=== PATIENT | female | born 1950 | race Caucasian/White ===

== ENCOUNTER → 2016-09-12 | Outpatient (CLI) | payer BC ==
[~2016-09-12] MED LIST: ACET-1311 PO; BUSP15TA70 PO; CALC625T PO; CALCTAB5 PO; CHOL100010 PO; CLON0.5T3 PO; DOCU-94 PO; OMEP20TA PO; PHEN1TAB85 PO; PHEN50CH PO; PHN/100 PO; POLY335019 PO; POLY99.02 OP; VENL150C PO; VENL75CA PO; WARF4TAB8 PO; WARF5TAB90 PO
[2016-09-12 09:43] LABS: BASO % 0.1 %; BASO ABS # 0.01 K/uL (0-0.2); COMPLETE YES; EOS % 2.6 %; HEMATOCRIT 46.3 % (37-47); IG% 0.1 %; LYMPH % 41.9 %; LYMPH ABS # 2.85 K/uL (1.2-3.4); MEAN CELL VOLUME 92.2 fL (80-100); MEAN CORPUSCULAR HEMOGLOBIN 31.1 pg (25-34); MEAN CORPUSCULAR HGB CONC 33.7 g/dl (32-36); MEAN PLATELET VOLUME 10.4 fL (7.4-10.4); MONO % 11.5 %; NEUT % 43.8 %; PLATELET COUNT 202 K/uL (130-400); RED BLOOD COUNT 5.02 M/uL (4.2-5.4)
[2016-09-12 10:07] LABS: ALT/SGPT 29 U/L (12-78); AST/SGOT 17 U/L (15-37); BLOOD UREA NITROGEN 14 mg/dl (7-18); BUN/CREATININE RATIO 18.7 (10-20); CALCIUM 8.6 mg/dl (8.5-10.1); CARBON DIOXIDE 29 mmol/L (21-32); CHLORIDE 105 mmol/L (98-107); CREATININE 0.73 mg/dl (0.60-1.20); GLUCOSE 81 mg/dl (70-99); PHENOBARBITAL 19.3 mcg/mL (15.0-40.0); POTASSIUM 3.9 mmol/L (3.5-5.1); SODIUM 142 mmol/L (136-145)
[2016-09-12 10:17] LABS: ALKALINE PHOSPHATASE 98 U/L (45-117)
[2016-09-12 17:39] LABS: URINE APPEARANCE CLEAR (CLEAR); URINE BILIRUBIN NEG (NEG); URINE COLOR YELLOW; URINE EPITHELIAL CELL AUTO >30 /lpf (0-5); URINE NITRITE NEG (NEG); URINE SPECIFIC GRAVITY 1.006 (1.000-1.030); UROBILINOGEN NEG (NEG)
[2016-09-12 17:43] LABS: MANUAL MICROSCOPIC REQUIRED? NO; REVIEW REQ? NO
== END | disposition home or self-care (01) ==
LOC: C.LAB1850 08:49
PROVIDERS: ATTEND Student in an Organized Health Care Education/Training Program
DX: Z79.899 Other long term (current) drug therapy (principal); R39.12 Poor urinary stream; F33.1 Major depressive disorder, recurrent, moderate

== ENCOUNTER → 2016-10-28 | Outpatient (CLI) | payer BC ==
--- NOTE | 2016-10-28 15:46 | DIAGNOSTIC IMAGING REPORT ---
KUB CLINICAL HISTORY: Constipation. Generalized abdominal pain. FINDINGS: 2 AP supine abdominal radiographs are obtained. No prior studies are available for comparison at the time of dictation. There is a nonobstructed abdominal bowel gas pattern noting severe constipation. No evidence of intraperitoneal free air is seen. There are no abnormal abdominal calcifications. The skeletal structures are osteopenic. Mild lumbosacral spondylosis and scoliosis are observed. The bony pelvis appears intact. IMPRESSION: Severe constipation. Electronically signed by: Carmine Causey M.D. 10/28/2016 3:44 PM Dictated Date/Time: 10/28/2016 3:43 PM
== END | disposition home or self-care (01) ==
LOC: C.RADBC 15:19
PROVIDERS: ATTEND Internal Medicine Geriatric Medicine
DX: K59.00 Constipation, unspecified (principal); R10.9 Unspecified abdominal pain

== ENCOUNTER → 2016-11-05 | Outpatient (CLI) | payer BC ==
--- NOTE | 2016-11-05 14:50 | DIAGNOSTIC IMAGING REPORT ---
KUB CLINICAL HISTORY: CONSTIPATION COMPARISON STUDY: 10/28/2016 FINDINGS: There is persistent fecal retention similar to the prior study. There are no transition zones indicate bowel obstruction. No abnormal abdominal calcifications are evident. IMPRESSION: Persistent fecal retention similar to the prior study Electronically signed by: Elvin Guardado M.D. 11/05/2016 2:49 PM Dictated Date/Time: 11/05/2016 2:48 PM
== END | disposition home or self-care (01) ==
LOC: C.RADBC 14:31
PROVIDERS: ATTEND Physician Assistant Medical
DX: K59.00 Constipation, unspecified (principal)

== ENCOUNTER → 2016-11-11 | Outpatient (CLI) | payer BC ==
[~2016-11-11] MED LIST changes: +ACET-1256 PO; +CALC-393 PO; +CHOL1TAB76 PO; +GLYCDRO6 OP; +MULT-663 PO; +ULT50X PO
--- NOTE | 2016-11-11 09:02 | DIAGNOSTIC IMAGING REPORT ---
GI W/AIR SMALL BOWEL ROUTINE CLINICAL HISTORY: K59.00 [id number] Abdominal [id number] COMPARISON STUDY: KUB 11/05/2016. FLUOROSCOPY TIME: 2.2 minutes. 39 images submitted. FINDINGS: The patient swallowed barium without difficulty. The esophagus is normal in course and caliber. Moderate hiatus hernia. No gastric ulcerations. The duodenal bulb and duodenal C sweep are within normal limits. Moderate gastroesophageal reflux. Additional fluoroscopic spot and overhead images of the small bowel were obtained. Contrast reached the colon x 20 m. The small bowel is normal in course and caliber. No evidence for bowel obstruction. The terminal ileum is normally distensible. IMPRESSION: 1. Moderate hiatus hernia with moderate gastroesophageal reflux. 2. Fast transit of contrast from small bowel and into the colon at 20 minutes. Otherwise, normal small bowel follow-through. Electronically signed by: Olvin Curtis M.D. 11/11/2016 9:01 AM Dictated Date/Time: 11/11/2016 8:57 AM
[2016-11-11 10:13] LABS: CALCIUM 8.7 mg/dl (8.5-10.1); CREATININE 0.76 mg/dl (0.60-1.20)
== END | disposition home or self-care (01) ==
LOC: C.RAD 07:37
PROVIDERS: ATTEND Physician Assistant Medical
DX: K44.9 Diaphragmatic hernia without obstruction or gangrene (principal); K21.9 Gastro-esophageal reflux disease without esophagitis; K59.00 Constipation, unspecified; M81.0 Age-related osteoporosis without current pathological fracture

== ENCOUNTER → 2016-12-25 | Outpatient (CLI) | payer BC ==
[2017-01-01 13:00] LABS: O&P SOURCE OTHER-STOOL
== END | disposition home or self-care (01) ==
LOC: C.LABSPEC 17:21
PROVIDERS: ATTEND Family Medicine
DX: R19.4 Change in bowel habit (principal)

== ENCOUNTER → 2017-01-01 | Outpatient (CLI) | payer BC ==
[~2017-01-01] MED LIST changes: +OPTIRAY 320 IV PRN
--- NOTE | 2017-01-01 08:35 | DIAGNOSTIC IMAGING REPORT ---
CT SCAN OF THE ABDOMEN WITH IV CONTRAST CLINICAL HISTORY: Generalized abdominal pain. Diarrhea. COMPARISON STUDY: Abdominal radiograph dated 11/05/2016. Radiograph of lumbar spine dated 08/30/2012. TECHNIQUE: Following the IV administration of 118 cc of Optiray 320, CT scan of the abdomen is performed from the lung bases to the pelvic inlet. Images are reviewed in the axial, sagittal, and coronal planes. IV contrast was administered without complication. Automated dose control exposure was utilized. Examination is degraded by large body habitus, and by streak artifact from the body wall abutting the CT gantry. CT DOSE: 500.09 mGy.cm FINDINGS: Lung bases: The heart is normal in size and without pericardial effusion. Linear atelectasis versus scarring is present at the lung bases. Liver: The contrast-enhanced liver is normal in size, contour, and attenuation. There is no intrahepatic biliary ductal dilatation. The hepatic veins and portal veins are patent. Gallbladder: Unremarkable. Spleen: Normal in size and attenuation. Pancreas: Unremarkable. Adrenal glands: There is mild nodularity of the left adrenal gland. The right adrenal gland is normal in appearance. Kidneys: The contrast enhanced kidneys there is a cortical atrophy and are without hydronephrosis. The kidneys enhance symmetrically. Left renal cysts measure up to 6.4 cm. Additional subcentimeter cortical hypodensities also likely represent cysts but are too small for definitive characterization. Abdominal vasculature: The abdominal aorta is normal in course and caliber noting minimal atherosclerotic calcification. Stomach and bowel: There is a moderate to large hiatal hernia. The duodenum is normal in configuration. Visualized portions of the small bowel and colon are normal in course and caliber. There is moderate colonic fecal retention. Peritoneum: There is no intraperitoneal free air or abdominal ascites. There is a small fat-containing umbilical hernia. Lymphadenopathy: None. Skeletal structures: The skeletal structures are osteopenic. No lytic or blastic lesions are seen. There are healed left-sided rib fractures. Lumbosacral spondylosis is observed. There is a mild to moderate chronic compression deformity of L1. IMPRESSION: 1. There are no acute infectious or inflammatory findings in the abdomen. 2. Moderate constipation. 3. Moderate to large hiatal hernia. Electronically signed by: Carmine Causey M.D. 01/01/2017 8:33 AM Dictated Date/Time: 01/01/2017 8:07 AM
== END | disposition home or self-care (01) ==
LOC: C.CTS 07:35
PROVIDERS: ATTEND Family Medicine
DX: R10.9 Unspecified abdominal pain (principal); K59.00 Constipation, unspecified; K44.9 Diaphragmatic hernia without obstruction or gangrene

== ENCOUNTER → 2017-05-02 | Outpatient (CLI) | payer BC ==
[~2017-05-02] MED LIST changes: -OPTIRAY 320 IV PRN
--- NOTE | 2017-05-02 14:32 | DIAGNOSTIC IMAGING REPORT ---
ADDENDUM Addendum: Broadcast Maintenance Technician error. The fracture involves the fifth metatarsal neck (not metacarpal as was stated in the prior report). Electronically signed by: Elvin Guardado M.D. 05/19/2017 10:01 AM Dictated Date/Time: 05/19/2017 9:59 AM ORIGINAL REPORT R FOOT MIN 3 VIEWS ROUTINE CLINICAL HISTORY: M79.671 right foot pain COMPARISON: None. DISCUSSION: There is acute fracture of the fifth metacarpal neck. No dislocations are visualized. There are moderate degenerative changes the level the first metatarsal phalangeal joint. There is a plantar calcaneal spur. IMPRESSION: Fifth metacarpal neck fracture. Electronically signed by: Elvin Guardado M.D. 05/02/2017 2:31 PM Dictated Date/Time: 05/02/2017 2:29 PM
--- NOTE | 2017-05-16 08:03 | EDITING REQUIRED CODING QUERY ---
CODING QUERY Dr. Guardado, To promote full compliance with coding requirements relating to patient care, provider participation is requested in all cases of vice president digital strategist uncertainty. Please assist us with the question(s) below: Coding Question(s): Per your report, Patient has "Fifth metacarpal neck fracture." X-ray was done of the foot. Patient came in with right foot pain, per order. Please clarify x-ray impression below: Physician's Response(s): Thank you Kishor Epperson Principal Diagnosis: "_that condition established after study, to be chiefly responsible for occasioning the admission of the patient to the hospital for care." Co-Existing Principal Diagnosis: "_when two or more diagnoses equally meet the criteria for principal diagnosis as determined by the circumstances of admission, diagnostic work up, and/or therapy provided, and the Alphabetic Index, Tabular List, or another coding guideline does not provide sequencing direction, any one of the diagnoses may be sequenced first." "When the physician has documented what appears to be a current diagnosis in the body of the record, but has not included the diagnosis in the final diagnostic statement, the physician should be asked whether the diagnosis should be added." ([facility] 2 QTR90. p3-4)
== END | disposition home or self-care (01) ==
LOC: C.RADBC 14:05
PROVIDERS: ATTEND Physician Assistant Medical
DX: S92.351A Displaced fracture of fifth metatarsal bone, right foot, initial encounter for closed fracture (principal); X58.XXXA Exposure to other specified factors, initial encounter

== ENCOUNTER 2017-05-20 15:29 | Observation (INO) | payer BC ==
[~2017-05-20] VITALS: Ht 162.6 cm; Wt 90.7 kg
[~2017-05-20 15:29] MED LIST changes: -ACET-1256 PO; -CALC-393 PO; -CHOL1TAB76 PO; -GLYCDRO6 OP; -MULT-663 PO; -ULT50X PO
[2017-05-20] MEDS ORDERED: ONDANSETRON INJ 2 MG/ML 2 ML VIAL IV STA (17:05)
[2017-05-20] MEDS ORDERED: FENTANYL CITRATE INJ 50 MCG/1 ML 2 ML VIAL IV PRN (17:15)
[2017-05-20] MEDS ORDERED: ACET-1256 PO (17:23)
[2017-05-20] MEDS ORDERED: CHOL1TAB76 PO (17:23)
[2017-05-20] MEDS ORDERED: CALC-393 PO (17:23)
[2017-05-20] MEDS ORDERED: GLYCDRO6 OP (17:23)
[2017-05-20] MEDS ORDERED: MULT-663 PO (17:29)
[2017-05-20 17:36] LABS: BASO % 0.3 %; BASO ABS # 0.02 K/uL (0-0.2); COMPLETE YES; EOS % 1.1 %; HEMATOCRIT 40.5 % (37-47); IG% 0.1 %; LYMPH % 25.9 %; LYMPH ABS # 2.04 K/uL (1.2-3.4); MEAN CELL VOLUME 92.7 fL (80-100); MEAN CORPUSCULAR HEMOGLOBIN 31.1 pg (25-34); MEAN CORPUSCULAR HGB CONC 33.6 g/dl (32-36); MEAN PLATELET VOLUME 9.7 fL (7.4-10.4); MONO % 15.5 %; NEUT % 57.1 %; PLATELET COUNT 184 K/uL (130-400); RED BLOOD COUNT 4.37 M/uL (4.2-5.4); WHITE BLOOD COUNT 7.88 K/uL (4.8-10.8)
[2017-05-20 17:39] LABS: INR 2.3 (0.9-1.1); PARTIAL THROMBOPLASTIN RATIO 1.7; PROTHROMBIN TIME (PATIENT) 25.8 SECONDS (9.0-12.0)
[2017-05-20 17:55] LABS: BUN/CREATININE RATIO 24.9 (10-20); CALCIUM 8.5 mg/dl (8.5-10.1); CREATININE 0.58 mg/dl (0.60-1.20); POTASSIUM 3.7 mmol/L (3.5-5.1)
--- NOTE | 2017-05-20 18:18 | DIAGNOSTIC IMAGING REPORT ---
(CHEST) THORAX WITHOUT CLINICAL HISTORY: Chest and rib pain status post trauma COMPARISON STUDY: 07/31/2012 CT DOSE: TECHNIQUE: CT of the thorax was performed from the thoracic inlet to the lung bases. Images are reviewed in the axial, sagittal, and coronal planes. IV contrast was not administered for this examination. A dose lowering technique was utilized adhering to the principles of ALARA. FINDINGS: Thyroid: Imaged portions of the thyroid gland are normal in appearance. Thoracic aorta: The thoracic aorta is normal in course and caliber, noting standard 3 vessel arch anatomy. Heart: The heart is normal in size and configuration, without pericardial effusion. Lungs and pleural spaces: There is a small right pleural effusion with dependent pleural-based calcifications. There are bilateral areas of presumed atelectatic change. There are no areas of consolidation to indicate pneumonia. There is no pneumothorax. There is respiratory motion artifact. No suspicious pulmonary masses are visualized. Mediastinum: There is no pathologic adenopathy by size criteria. Ladonna: There is no pathologic adenopathy given the limitations of a noncontrast study Axilla: There is no pathologic adenopathy Upper abdomen: There is a moderate hiatal hernia. There is a 6 cm left renal cyst. Skeletal structures: There are acute fractures of the right posterior eighth, ninth, and 10th ribs. There is a superior endplate T12 compression fracture, likely old. IMPRESSION: 1. Acute fractures of the right posterior eighth, ninth, and 10th ribs 2. Small right pleural effusion 3. Hiatal hernia 4. 6 cm left renal cyst 5. Bilateral atelectatic changes 6. No evidence of pneumothorax Electronically signed by: Elvin Guardado M.D. 05/20/2017 6:17 PM Dictated Date/Time: 05/20/2017 6:10 PM
--- NOTE | 2017-05-20 18:26 | DIAGNOSTIC IMAGING REPORT ---
CT LUMBAR SPINE WITHOUT CT DOSE: CLINICAL HISTORY: Back pain TECHNIQUE: Helical images were acquired in transverse plane. Reformatted sagittal and coronal images were reviewed. A dose lowering technique was utilized adhering to the principles of ALARA. CONTRAST: No contrast was administered COMPARISON STUDY: CT scan of the abdomen pelvis dated 01/01/2017 FINDINGS: L1-2 level: There is an old superior endplate L1 compression fracture. There is minimal retropulsion. There is no evidence of significant disc bulge or focal herniation. There is no significant spinal or foraminal stenosis. There is a 3 cm left renal cyst. L2-3 level: There is a mild circumferential disc bulge. There is mild spinal stenosis. There is no significant foraminal narrowing L3-4 level: There is a circumferential disc bulge. There is mild facet and ligamentous hypertrophy. There is moderate spinal stenosis. There is no significant foraminal narrowing L4-5 level: There is a circumferential disc bulge with moderate spinal stenosis. There is no significant foraminal narrowing. There is facet joint arthropathy. L5-S1 level: There is no evidence of significant disc bulge or focal herniation. There is no evidence of spinal or foraminal stenosis. IMPRESSION: 1. Old superior endplate L1 compression fracture with minimal retropulsion 2. Multilevel spondylitic changes with mild spinal stenosis at the L2-3 level, and moderate spinal stenosis at the L3-4, and L4-5 levels. Electronically signed by: Elvin Guardado M.D. 05/20/2017 6:24 PM Dictated Date/Time: 05/20/2017 6:20 PM
--- NOTE | 2017-05-20 18:29 | DIAGNOSTIC IMAGING REPORT ---
CT THORACIC SPINE WITHOUT CT DOSE: 1056.64 mGy.cm CLINICAL HISTORY: Back pain TECHNIQUE: Helical images were acquired in the transverse plane. Sagittal and coronal reformatted images were acquired. A dose lowering technique was utilized adhering to the principles of ALARA. COMPARISON STUDY: None. FINDINGS: There is a small right pleural effusion. Bilateral atelectatic changes are visualized. No pneumothorax is visualized. There is an old superior endplate L1 compression fracture with minimal retropulsion. No thoracic compression fractures are visualized. There are mild multilevel degenerative changes. IMPRESSION: 1. Mild multilevel degenerative changes 2. No acute thoracic fractures or subluxations 3. Old superior endplate L1 compression fracture with minimal retropulsion 4. Small right pleural effusion Electronically signed by: Elvin Guardado M.D. 05/20/2017 6:28 PM Dictated Date/Time: 05/20/2017 6:25 PM
[2017-05-20 18:42] LABS: MANUAL MICROSCOPIC REQUIRED? NO; REVIEW REQ? NO; URINE APPEARANCE CLEAR (CLEAR); URINE BILIRUBIN NEG (NEG); URINE COLOR YELLOW; URINE NITRITE NEG (NEG); URINE PH 5.5 (4.5-7.5); URINE SPECIFIC GRAVITY 1.018 (1.000-1.030); UROBILINOGEN NEG (NEG)
--- NOTE | 2017-05-20 19:45 | DIAGNOSTIC IMAGING REPORT ---
CT HEAD WITHOUT CONTRAST (CT) CLINICAL HISTORY: Head trauma. Patient on anticoagulation. COMPARISON STUDY: 08/16/2009 TECHNIQUE: Axial CT of the brain is performed from the vertex to the skull base. IV contrast was not administered for this examination. A dose lowering technique was utilized adhering to the principles of ALARA. CT DOSE: 614.27 mGy.cm FINDINGS: No intra or extra-axial mass lesions are visualized. There is no CT evidence of acute cortical infarction. There is no evidence of midline shift. There is no acute hemorrhage. No calvarial fractures are visualized. There is an old infarct in the distribution of the right middle cerebral artery. There is bilateral cerebellar atrophy. There is no evidence of pathologic ventricular dilatation. There is no evidence of acute sinusitis IMPRESSION: Old right MCA territory infarct. No acute intracranial findings. Electronically signed by: Elvin Guardado M.D. 05/20/2017 7:44 PM Dictated Date/Time: 05/20/2017 7:41 PM
[2017-05-20] MEDS ORDERED: ALUMINUM/MAGNESIUM/SIMETH (MAALOX MAX) 30 ML UDC PO PRN (21:15)
[2017-05-20] MEDS ORDERED: ACETAMINOPHEN 500 MG TAB PO PRN (21:15)
[2017-05-20] MEDS ORDERED: POLYETHYLENE (MIRALAX) 17 GM PACK PO PRN (21:15)
[2017-05-20] MEDS ORDERED: ACETAMINOPHEN 325 MG TAB PO PRN (21:15)
[2017-05-20] MEDS ORDERED: MAGNESIUM HYDROXIDE SUSP 30 ML UDC PO PRN (21:15)
[2017-05-20] MEDS ORDERED: ONDANSETRON INJ 2 MG/ML 2 ML VIAL IV PRN (21:15)
[2017-05-20] MEDS ORDERED: ARTIFICIAL TEARS OP SOLN OP PRN ×2 (21:15)
--- NOTE | 2017-05-20 21:16 | History and Physical ---
History & Physical Date & Time of Service: May 20, 2017 at 21:15 Chief Complaint: Rib Pain, Stiff, Trouble Navigating Walker Primary Care Physician: No Doctor, Assigned History of Present Illness Source: patient 67 y/o F Hx DVTs, seizure disorder, depression, chronic unstable gait - uses walker. Suffered a fall 3 days prior sustaining fractures of the right posterior eighth, ninth, and 10th ribs. Pain has been difficult to control and pt has not been able to ambulate and function independently as a result. She had arrived at the hospital requesting transfer to a rehab facility. She could not however qualify for placement without a PT/OT. As this was not a late- night option, she is assigned to observation pending AM eval and transfer. She denies central CP, SOB, fevers, N/V, dysuria. 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 5) Depression Family History CVA Social History Smoking Status: Never Smoker Immunizations History of Influenza Vaccine: No Influenza Vaccine Date: Aug 24, 2009 History of Tetanus Vaccine?: No History of Pneumococcal: No History of Hepatitis B Vaccine: No Multi-Drug Resistant Organisms History of MDRO: No Allergies Coded Allergies: Codeine (Verified Adverse Reaction, Mild, dizziness, upset stomach, fainted, 05/20/17) Home Medications Scheduled Calcium Carbonate (Calcium), 1 TAB PO BIDM Cholecalciferol (D 1999), 2 TABS PO BIDM Clonazepam (Klonopin), 0.25 MG PO BID Docusate Sodium (Colace), 1 CAP PO DAILY Gvwmtfxi-Cfkgfdfeueil-Sfyowdom (Artificial Tears), 1-2 DROPS OP UD Multiple Minerals W/ Vitamins (Citracal Plus), 1 TAB PO DAILY Omeprazole (Omeprazole), 1 TAB PO BID Phenobarbital (Phenobarbital), 90 MG PO HS Phenytoin (Dilantin Chewable), 50 MG PO QAM Phenytoin Sodium (Dilantin), 100 MG PO BID Venlafaxine Hcl (Effexor Xr), 150 MG PO BID Venlafaxine Hcl (Effexor Xr), 75 MG PO QAM Warfarin Sod (Jantoven), 4 MG PO WK Warfarin Sodium (Coumadin), 5 MG PO 6XWK Scheduled PRN Acetaminophen (Tylenol), 1,000 MG PO Q6H PRN for Pain or Fever Polyethylene Glycol 3350 (Miralax), 17 GM PO Q2D PRN for Constipation Review of Systems Constitutional: No fever, No chills, No sweats Eyes: No worsening of vision ENT: No hearing loss, No unusual epistaxis, No nasal symptoms Respiratory: No cough, No sputum, No wheezing Cardiovascular: + chest pain (chest wall pain) Abdomen: No pain, No nausea, No vomiting Musculoskeletal: + muscle pain (BAck and lateral CP) Genitourinary - Female: No dysuria, No urinary frequency, No urinary urgency Neurologic: No memory loss, No paralysis Psychiatric: No depression symptoms Endocrine: No fatigue Hematologic / Lymphatic: No abnormal bleeding/bruising Integumentary: No rash Allergic / Immunologic: No environmental allergies Physical Exam Vital Signs Date Time Temp Pulse Resp B/P (MAP) Pulse Ox O2 Delivery O2 Flow Rate FiO2 05/20/17 19:13 92 20 152/73 92 Room Air 05/20/17 18:31 90 18 133/60 96 Room Air 05/20/17 17:13 86 18 143/82 92 Room Air 05/20/17 15:40 36.7 102 20 156/61 95 Room Air General Appearance: WD/WN, no apparent distress Head: normocephalic Eyes: normal inspection ENT: normal ENT inspection, pharynx normal Neck: supple, no JVD Respiratory/Chest: lungs clear, normal breath sounds, no respiratory distress, no accessory muscle use, + pertinent finding (chest is tender at latral R lower) Cardiovascular: regular rate, rhythm, no edema, no gallop, normal peripheral pulses Abdomen/GI: normal bowel sounds, non tender, soft Back: normal inspection, no CVA tenderness, no muscle spasm, normal range of motion Extremities/Musculoskelatal: normal inspection, no calf tenderness, normal capillary refill, no pedal edema, normal range of motion Neurologic/Psych: counter hop II-XII nml as tested, no motor/sensory deficits, alert, normal mood/affect, normal reflexes, oriented x 3 Skin: normal color, warm/dry, no rash Diagnostics Laboratory Results Results Past 24 Hours Test 05/20/17 17:10 05/20/17 17:57 Range/Units White Blood Count 7.88 4.8-10.8 K/uL Red Blood Count 4.37 4.2-5.4 M/uL Hemoglobin 13.6 12.0-16.0 g/dL Hematocrit 40.5 37-47 % Mean Corpuscular Volume 92.7 80-100 fL Mean Corpuscular Hemoglobin 31.1 25-34 pg Mean Corpuscular Hemoglobin Concent 33.6 32-36 g/dl Platelet Count 184 130-400 K/uL Mean Platelet Volume 9.7 7.4-10.4 fL Neutrophils (%) (Auto) 57.1 % Lymphocytes (%) (Auto) 25.9 % Monocytes (%) (Auto) 15.5 % Eosinophils (%) (Auto) 1.1 % Basophils (%) (Auto) 0.3 % Neutrophils # (Auto) 4.50 1.4-6.5 K/uL Lymphocytes # (Auto) 2.04 1.2-3.4 K/uL Monocytes # (Auto) 1.22 0.11-0.59 K/uL Eosinophils # (Auto) 0.09 0-0.5 K/uL Basophils # (Auto) 0.02 0-0.2 K/uL RDW Standard Deviation 46.6 36.4-46.3 fL RDW Coefficient of Variation 13.8 11.5-14.5 % Immature Granulocyte % (Auto) 0.1 % Immature Granulocyte # (Auto) 0.01 0.00-0.02 K/uL Prothrombin Time 25.8 9.0-12.0 SECONDS Prothromb Time International Ratio 2.3 0.9-1.1 Activated Partial Thromboplast Time 44.9 21.0-31.0 SECONDS Partial Thromboplastin Ratio 1.7 Sodium Level 137 136-145 mmol/L Potassium Level 3.7 3.5-5.1 mmol/L Chloride Level 104 98-107 mmol/L Carbon Dioxide Level 27 21-32 mmol/L Anion Gap 6.0 3-11 mmol/L Blood Urea Nitrogen 14 7-18 mg/dl Creatinine 0.58 0.60-1.20 mg/dl Est Creatinine Clear Calc Drug Dose 101.3 ml/min Estimated GFR () 109.8 Estimated GFR (Non- 94.7 BUN/Creatinine Ratio 24.9 10-20 Random Glucose 90 70-99 mg/dl Calcium Level 8.5 8.5-10.1 mg/dl Urine Color YELLOW Urine Appearance CLEAR CLEAR Urine pH 5.5 4.5-7.5 Urine Specific [place] 1.018 1.000-1.030 Urine Protein NEG NEG Urine Glucose (UA) NEG NEG Urine Ketones NEG NEG Urine Occult Blood NEG NEG Urine Nitrite NEG NEG Urine Bilirubin NEG NEG Urine Urobilinogen NEG NEG Urine Leukocyte Esterase SMALL NEG Urine WBC (Auto) 10-30 0-5 /hpf Urine RBC (Auto) 0-4 0-4 /hpf Urine Hyaline Casts (Auto) 0 0-5 /lpf Urine Epithelial Cells (Auto) 10-20 0-5 /lpf Urine Bacteria (Auto) NEG NEG Diagnostic Radiology CT chest 1. Acute fractures of the right posterior eighth, ninth, and 10th ribs 2. Small right pleural effusion 3. Hiatal hernia 4. 6 cm left renal cyst 5. Bilateral atelectatic changes 6. No evidence of pneumothorax Impression Assessment and Plan 67 y/o F Hx DVTs, seizure disorder, depression, chronic unstable gait - uses walker. Suffered a fall 3 days prior sustaining fractures of the right posterior eighth, ninth, and 10th ribs. Pain has been difficult to control and pt has not been able to ambulate and function independently as a result. She had arrived at the hospital requesting transfer to a rehab facility. She could not however qualify for placement without a PT/OT. As this was not a late- night option, she is assigned to observation pending AM eval and transfer. She denies central CP, SOB, fevers, N/V, dysuria. 1) Rib fractures - gait dysfunction - pt requesting transfer to [facility] - PT/OT eval pending for AM - pain control provided 2) Seizure disorder - continue Dilantin 3) Depression - cont Venlafaxine 4) DVTs - INR is therapeutic - continue Coumadin Full code - anticoagulated with Coumadin Total time for this admit including review of labs, meds, imaging - discussion with pt and ER attending - 32 min Level of Care Med/Surg Resuscitation Status FULL RESUSCITATION VTE Prophylaxis VTE Risk Assessment Done? Y/N: Yes Risk Level: Moderate Given or contraindicated: Warfarin (Coumadin)
--- NOTE | 2017-05-20 23:15 | EMERGENCY ROOM VISIT NOTE ---
ED Visit Note First contact with patient: 16:43 I have personally seen and evaluated the patient with the PA. I agree with the diagnosis and management decisions and have been personally involved in the case. Please see Ha Tovar PA-C's notes for further details of the history, physical and visit.
[2017-05-21] VITALS: Ht 162.6 cm; Wt 90.7 kg
[2017-05-21 00:34] VITALS: BP 138/82; PULSE 102; TEMP 36.8; O2SAT 92
[2017-05-21] MEDS: PANTOprazole SOD 40 MG TAB PO SCH ×3 (01:49→21:56)
[2017-05-21] MEDS: PHENYTOIN SODIUM ER 100 MG CAP PO SCH ×3 (01:50→21:53)
[2017-05-21] MEDS: CLONAZEPAM 0.5 MG TAB PO SCH ×3 (01:50→22:00)
[2017-05-21] MEDS: VENLAFAXINE HCL XR 150 MG CAPXR PO SCH ×3 (01:52→21:56)
[2017-05-21] MEDS: WARFARIN SOD 5 MG TAB PO SCH ×3 (01:52→21:54)
[2017-05-21] MEDS: PHENOBARBITAL 32.4 MG TAB PO SCH (01:55)
--- NOTE | 2017-05-21 01:55 | EMERGENCY ROOM VISIT NOTE ---
ED Visit Note First contact with patient: 16:44 Chief Complaint: I fell couple days ago and now on having back and rib pain. History of Present Illness: Ms. West is a 67-year-old white female who is brought into the ED via wheelchair accompanied by her complaining of right sided rib pain, thoracic and lumbar back pain. 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 She also reports approximately 2-3 weeks ago she sustained a toe fracture and has had increasing difficulty walking because of pain. Patient goes on to report that 3 days ago she was standing up from the sitting position and fell. She reports she was to herself between a couch and a coffee table. She does not remember if she struck the coffee table. She does reports she was not having any lightheaded or dizziness before the fall, the time of the fall she reports she did not strike her head or have a loss of consciousness and since the fall she denies all symptoms of head injury. Patient reports she has been having progressively worsening pain over the right lateral and posterior ribs, the mid to lower thoracic spine and the upper lumbar spine. She is unable to describe her pain and when I gave her agitated is she reported the pain is primarily sharp but every once in a while it feels cramping, stabbing and burning. She rates her discomfort 10/10. She has not identified any alleviating factors related to the pain. Her pain worsens with palpation, deep inspiration, moving from the sitting to the standing and lying positions and difficulty with ambulation at home. She reports she has attempted to use acetaminophen and has no relief of her discomfort. She denies any associated headache, dizziness, lightheadedness, visual changes, hearing changes, difficulty speaking, difficulty swallowing, difficulty coordinating body movements, shortness of breath, cough, wheezing, shortness of breath, abdominal pain, nausea, vomiting, decreased appetite, upper or lower extremity pain. Review of Systems: As noted above in history of present illness. All body systems were reviewed and found to be negative as noted above. Past Medical History: As previously noted, unspecified seizure disorder, DVT, depression. Current Medications: Medications Dose Route/Sig Max Daily Dose Days Date Category Dose Instructions Citracal Plus (Multiple Minerals W/Vitamins) 1 Tab 1 Tab PO DAILY 05/20/17 Reported Tylenol (Acetaminophen) 500 Mg Tab 1,000 Mg PO Q6H PRN 05/20/17 Reported D 2000 (Cholecalciferol) 2,000 Unit Tab 2 Tabs PO BIDM 05/20/17 Reported WITH LUNCH AND DINNER Calcium (Calcium Carbonate) 600 Mg Tab 1 Tab PO BIDM 05/20/17 Reported WITH LUNCH AND DINNER Artificial Tears (Hmucksip-Fvhkqnbhporx-Dpiviqqm) 1 Naun Naun 1-2 Drops OP UD 05/20/17 Reported Colace (Docusate Sodium) 100 Mg Cap 1 Cap PO DAILY 11/15/16 Reported Miralax (Polyethylene Glycol 3350) 1 Pow Pow 17 Gm PO Q2D PRN 11/15/16 Reported Omeprazole 20 Mg Tab 1 Tab PO BID 90 10/18/16 Reported Effexor Xr (Venlafaxine Hcl) 75 Mg Cap 75 Mg PO QAM 06/17/14 Reported Klonopin (Clonazepam) 0.5 Mg Tab 0.25 Mg PO BID 04/15/14 Reported Jantoven (Warfarin Sodium) 4 Mg Tab 4 Mg PO WK 10/08/13 Reported FRIDAY Effexor Xr (Venlafaxine Hcl) 150 Mg Cap 150 Mg PO BID 08/27/13 Reported Coumadin (Warfarin Sodium) 5 Mg Tab 5 Mg PO 6XWK 07/21/12 Reported Phenobarbital 30 Mg Tab 90 Mg PO HS 07/21/12 Reported Dilantin Chewable (Phenytoin) 50 Mg Chw 50 Mg PO QAM 07/21/12 Reported total AM dose= 150mg Dilantin (Phenytoin Sodium) 100 Mg Cap 100 Mg PO BID 07/21/12 Reported Allergies to Medications: Codeine. Social History: Patient is not employed; she feels safe in her home environment ; she denies tobacco and alcohol use. Physical Examination: Vital Signs: Date Time Temp Pulse Resp B/P (MAP) Pulse Ox O2 Delivery O2 Flow Rate FiO2 05/20/17 19:13 92 20 152/73 92 Room Air 05/20/17 18:31 90 18 133/60 96 Room Air 05/20/17 17:13 86 18 143/82 92 Room Air 05/20/17 15:40 36.7 102 20 156/61 95 Room Air GENERAL: 67-year-old female in moderate distress due to pain, chronically ill appearing, afebrile and hemodynamically stable. NEUROLOGICAL: Awake, alert and oriented to person, place and time. Answering questions appropriately and following commands. Radial nerves II through XII grossly intact. Good short-term and long-term recall. Good hand eye coordination. SKIN: Warm, dry and pink. Patient has no open soft tissue injuries but multiple contusions of the lower extremities were noted. HEENT: Atraumatic and normocephalic. Skull: No bony deformities, depressions, tenderness or ecchymosis. No raccoon's eyes or yip signs. No drainage from the ear or nostril; no hemotympanum. No facial bony tenderness, swelling or ecchymosis. PERRLA. EOMI without nystagmus. Sclera white and conjunctiva pink. No malocclusion. Airway patent. No intraoral trauma. Speech is clear and recognizable. Trachea midline. No jugular venous distention. BACK: No tenderness over the bony cervical spine. Moderate tenderness over the T7 through T11 area and over the L2 through L4 area. I do not appreciate any bony deformity, bony crepitus, swelling, ecchymosis or step-offs. Range of motion was not performed. No CVA tenderness. THORAX: Lungs sounds are clear to auscultation and equal bilaterally with symmetrical chest wall. No wheezing, rales or rhonchi. Moderate tenderness over the posterior lateral aspect of ribs 6 through 12 without bony deformity, bony crepitus, swelling or ecchymosis. HEART: Regular rate and rhythm. No gallops, rubs or murmurs are appreciated. ABDOMEN: Obese, soft and nontender. Positive bowel sounds in all quadrants. No guarding, rigidity or organomegaly. PELVIS: Stable and nontender to compression and rock. UPPER EXTREMITIES: No gross bony deformity. No tenderness over the shoulders, upper arms, elbows, forearms, wrists or hands. Distal neurovascular statuses are intact and equal bilaterally. LOWER EXTREMITIES: No gross bony deformity. No shortening or malrotation. No tenderness over the hips, thighs, knees, lower legs, ankles or feet. Distal neurovascular statuses are intact and equal bilaterally. ED Course: Patient is assessed as noted above. Patient's medication list was reviewed. Laboratory Testing: Test 05/20/17 17:10 05/20/17 17:57 Range/Units White Blood Count 7.88 4.8-10.8 K/uL Red Blood Count 4.37 4.2-5.4 M/uL Hemoglobin 13.6 12.0-16.0 g/dL Hematocrit 40.5 37-47 % Mean Corpuscular Volume 92.7 80-100 fL Mean Corpuscular Hemoglobin 31.1 25-34 pg Mean Corpuscular Hemoglobin Concent 33.6 32-36 g/dl Platelet Count 184 130-400 K/uL Mean Platelet Volume 9.7 7.4-10.4 fL Neutrophils (%) (Auto) 57.1 % Lymphocytes (%) (Auto) 25.9 % Monocytes (%) (Auto) 15.5 % Eosinophils (%) (Auto) 1.1 % Basophils (%) (Auto) 0.3 % Neutrophils # (Auto) 4.50 1.4-6.5 K/uL Lymphocytes # (Auto) 2.04 1.2-3.4 K/uL Monocytes # (Auto) 1.22 0.11-0.59 K/uL Eosinophils # (Auto) 0.09 0-0.5 K/uL Basophils # (Auto) 0.02 0-0.2 K/uL RDW Standard Deviation 46.6 36.4-46.3 fL RDW Coefficient of Variation 13.8 11.5-14.5 % Immature Granulocyte % (Auto) 0.1 % Immature Granulocyte # (Auto) 0.01 0.00-0.02 K/uL Prothrombin Time 25.8 9.0-12.0 SECONDS Prothromb Time International Ratio 2.3 0.9-1.1 Activated Partial Thromboplast Time 44.9 21.0-31.0 SECONDS Partial Thromboplastin Ratio 1.7 Sodium Level 137 136-145 mmol/L Potassium Level 3.7 3.5-5.1 mmol/L Chloride Level 104 98-107 mmol/L Carbon Dioxide Level 27 21-32 mmol/L Anion Gap 6.0 3-11 mmol/L Blood Urea Nitrogen 14 7-18 mg/dl Creatinine 0.58 0.60-1.20 mg/dl Est Creatinine Clear Calc Drug Dose 101.3 ml/min Estimated GFR () 109.8 Estimated GFR (Non- 94.7 BUN/Creatinine Ratio 24.9 10-20 Random Glucose 90 70-99 mg/dl Calcium Level 8.5 8.5-10.1 mg/dl Urine Color YELLOW Urine Appearance CLEAR CLEAR Urine pH 5.5 4.5-7.5 Urine Specific Elida 1.018 1.000-1.030 Urine Protein NEG NEG Urine Glucose (UA) NEG NEG Urine Ketones NEG NEG Urine Occult Blood NEG NEG Urine Nitrite NEG NEG Urine Bilirubin NEG NEG Urine Urobilinogen NEG NEG Urine Leukocyte Esterase SMALL NEG Urine WBC (Auto) 10-30 0-5 /hpf Urine RBC (Auto) 0-4 0-4 /hpf Urine Hyaline Casts (Auto) 0 0-5 /lpf Urine Epithelial Cells (Auto) 10-20 0-5 /lpf Urine Bacteria (Auto) NEG NEG Head CT: Was reviewed by myself and read by the radiologist and shows 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 No acute intracranial findings or skull fractures. Chest CT: Was reviewed by myself and read by the radiologist showing acute fractures of the right posterior eighth, ninth and 10th ribs. Small right- sided pleural effusion. Hiatal hernia. 6 cm left renal cyst. Bilateral atelectatic changes. No evidence of pneumothorax. Thoracic Spine CT: Was reviewed by myself and read by the radiologist showing mild multilevel degenerative changes. No acute thoracic fractures or subluxations. Old superior endplate L1 compression fraction with minimal retropulsion. Small right pleural effusion. Lumbar Spine CT: Was reviewed by myself and read by the radiologist showing SUPERIOR endplate L1 compression fraction with minimal retropulsion. Multiple level spondylitic changes with mild spinal stenosis at the L2-L3 level and moderate spinal stenosis at the L3-L4 and L4-L5 levels. An IV lock was initiated and patient received 4 mg of Zofran IV for nausea and 50 mg of fentanyl IV for pain. Patient was reassessed multiple times during her stay in the emergency department. Patient's case was reviewed with Dr. Blancas; she in apparently assessed the patient we agreed on diagnostic approach, treatment, disposition and plan. Patient's case was consulted with case management and Dr. Vinson, [facility] hospitalist, for medical observation/admission until OT and PT evaluations can be performed and patient could be accepted to rehabilitation Hospital. Patient was educated about today's findings and instructed on her treatment plan ; she verbalized understanding and agreement with this plan. Clinical Impression: Right posterior rib fractures. Status post fall. Gait disturbance. Disposition and Plan: Patient be brought in the hospital for observation for pain management, gait dysfunction, PT and OT evaluation for rehabilitation Hospital admission by Dr. Vinson; we see his notes and orders for final disposition and plan.
[2017-05-21] MEDS ORDERED: IV FLUIDS COMPLETED PRN (02:30)
[2017-05-21 07:01] VITALS: BP 116/70; PULSE 88; TEMP 36.7; O2SAT 92
[2017-05-21] MEDS: VENLAFAXINE HCL XR 75 MG CAPXR PO SCH (08:57)
[2017-05-21] MEDS: TRAMADOL HCL 50 MG TAB PO PRN ×2 (08:57→17:44)
[2017-05-21] MEDS ORDERED: DOCUSATE SODIUM 100 MG CAP PO SCH (09:00)
[2017-05-21] MEDS ORDERED: PHENYTOIN 50 MG CHEW PO SCH (09:00)
[2017-05-21] MEDS ORDERED: NURSING VERBAL MED ORDER ONE ×3 (10:15→16:30)
[2017-05-21] MEDS ORDERED: CALCIUM CARBONATE 500 MG CHEWABLE PO SCH (12:00)
[2017-05-21] MEDS: POLYETHYLENE (MIRALAX) 17 GM PACK PO SCH (12:44)
[2017-05-21] MEDS: DOCUSATE SODIUM 100 MG CAP PO SCH ×3 (12:45→21:54)
[2017-05-21] MEDS: BusPIRone 15 MG TAB PO SCH ×2 (12:45→21:55)
[2017-05-21 14:51] VITALS: BP 129/67; PULSE 82; TEMP 37; O2SAT 97
[2017-05-21 16:00] VITALS: O2SAT 97
--- NOTE | 2017-05-21 20:13 | DIAGNOSTIC IMAGING REPORT ---
BILATERAL LOWER EXTREMITY VENOUS DOPPLER CLINICAL HISTORY: Right calf swelling, left leg ecchymosis;h/o dvt COMPARISON STUDY: Bilateral lower extremity venous Doppler May 07, 2012. TECHNIQUE: Sonography of the deep venous system of the bilateral lower extremities was performed. Compression and augmentation were evaluated. FINDINGS: Note is made of nonocclusive thrombus within the right popliteal and left superficial femoral veins. This thrombus is age indeterminate and may be chronic. Thrombus within the right popliteal vein was shown on exam of May 07, 2012. No additional sites of deep venous thrombus were identified within either lower extremity. IMPRESSION: Nonocclusive deep venous thrombus within the right popliteal and left superficial femoral veins. This thrombus is age indeterminate. Electronically signed by: Jay Herbert M.D. 05/21/2017 8:11 PM Dictated Date/Time: 05/21/2017 8:08 PM
[2017-05-22] MEDS: PHENOBARBITAL 32.4 MG TAB PO SCH (00:03)
[2017-05-22 00:06] VITALS: BP 154/87; PULSE 81; TEMP 36.3; O2SAT 95
--- NOTE | 2017-05-22 06:22 | Progress Note ---
Subjective Date of Service: May 21, 2017. Subjective Pt evaluation today including: conversation w/ patient, conversation w/ family , physical exam Patient reports feeling well. Denies any complaints except for mild swelling on right posterior calf, and a small bruise on left leg. Review of Systems Constitutional: No fever, No chills ENT: No hearing loss, No unusual epistaxis Respiratory: No cough, No sputum Cardiac: No chest pain, No orthopnea Abdomen: No pain, No nausea Neurologic: No memory loss, No paralysis Heme: No abnormal bleeding/bruising Endo: No fatigue All Other Systems: Reviewed and Negative Medications Current Inpatient Medications Medications (Trade) Dose Ordered Sig/Anika Route Start Time Stop Time Status Last Admin Dose Admin Acetaminophen (Tylenol Tab) 650 mg Q4H PRN PO 05/20/17 21:15 06/19/17 21:14 05/21/17 04:34 650 MG Al Hydrox/Mg Hydrox/Simethicone (Maalox Max Susp) 15 ml Q4H PRN PO 05/20/17 21:15 06/19/17 21:14 Magnesium Hydroxide (Milk Of Magnesia Susp) 30 ml Q6H PRN PO 05/20/17 21:15 06/19/17 21:14 Polyethylene (Miralax Powder Packet) 17 gm DAILY PRN PO 05/20/17 21:15 06/19/17 21:14 Ondansetron HCl (Zofran Inj) 4 mg Q6H PRN IV 05/20/17 21:15 06/19/17 21:14 Clonazepam (Klonopin Tab) 0.25 mg BID PO 05/21/17 00:30 06/20/17 00:29 05/22/17 07:46 0.25 MG Phenobarbital (Phenobarbital Tab) 97.2 mg HS PO 05/21/17 00:30 06/20/17 00:29 05/22/17 00:03 97.2 MG Venlafaxine HCl (effeXOR EXTENDED REL CAP) 75 mg QAM PO 05/21/17 09:00 06/20/17 08:59 05/22/17 07:47 75 MG Venlafaxine HCl (effeXOR EXTENDED REL CAP) 150 mg BID PO 05/21/17 00:30 06/20/17 00:29 05/22/17 07:47 150 MG Pantoprazole Sodium (Protonix Tab) 40 mg BID PO 05/21/17 00:30 06/20/17 00:29 05/22/17 07:47 40 MG Artificial Tears (Artificial Tears) 1 drops Q4H PRN OP 05/20/17 21:15 06/19/17 21:14 Tramadol HCl (Ultram Tab) 50 mg Q4H PRN PO 05/20/17 21:15 06/19/17 21:14 05/22/17 07:47 50 MG Miscellaneous (Iv Fluids Completed) 1 ea PRN PRN N/A 05/21/17 02:30 05/21/18 02:29 Buspirone HCl (BusPAR TAB) 30 mg BID PO 05/21/17 11:00 06/20/17 10:59 05/22/17 07:47 30 MG Polyethylene (Miralax Powder Packet) 17 gm DAILY PO 05/21/17 11:00 06/20/17 10:59 05/22/17 07:48 17 GM Docusate Sodium (coLACE CAP) 100 mg TID PO 05/21/17 11:00 06/20/17 10:59 05/22/17 07:48 100 MG Warfarin Sodium (Coumadin Tab) 5 mg DAILY@2100 PO 05/21/17 21:00 06/20/17 00:29 05/21/17 21:54 5 MG Phenytoin (Dilantin Chew) 50 mg DAILY PO 05/22/17 09:00 06/21/17 08:59 05/22/17 07:49 50 MG Phenytoin Sodium (Dilantin Er Cap) 100 mg BID PO 05/21/17 21:00 06/20/17 20:59 05/22/17 07:49 100 MG Calcium/Vitamin D (Caltrate Plus Tab) 1 tab DAILY@1200 PO 05/22/17 12:00 06/21/17 11:59 Objective Vital Signs Date Time Temp Pulse Resp B/P (MAP) Pulse Ox O2 Delivery O2 Flow Rate FiO2 05/22/17 00:06 36.3 81 18 154/87 (109) 95 Room Air 05/21/17 23:50 Room Air 05/21/17 16:00 97 Room Air 05/21/17 14:51 37.0 82 18 129/67 (87) 97 Room Air 05/21/17 08:30 Room Air 05/21/17 07:01 36.7 88 20 116/70 (85) 92 Room Air Physical Exam General Appearance: WD/WN, no apparent distress Neck: supple Respiratory/Chest: chest non-tender, lungs clear, + pertinent finding ( tenderness on bilateral chest wall) Cardiovascular: regular rate, rhythm, no edema, no gallop Abdomen: normal bowel sounds, non tender, soft Extremities: normal range of motion, non-tender, + pertinent finding (minimal swelling noted on right calf; small ecchymosis on left eg anteriorly below knee) Lymphatic: no adenopathy Laboratory Results Last 24 Hours Test 05/21/17 11:27 05/22/17 04:44 Bedside Glucose 87 mg/dl Assessment and Plan 67 y/o F Hx DVTs, seizure disorder, depression, chronic unstable gait - uses walker. Suffered a fall 3 days prior sustaining fractures of the right posterior eighth, ninth, and 10th ribs. Pain has been difficult to control and pt has not been able to ambulate and function independently as a result. She had arrived at the hospital requesting transfer to a rehab facility. She could not however qualify for placement without a PT/OT. 1) Rib fractures - gait dysfunction - Patient requesting transfer to [facility] - PT/OT eval pending for AM - pain control provided PT recommend discharge to acute rehab when medically cleared by [facility]. 2) Seizure disorder - continue Dilantin 3) Depression - cont Venlafaxine 4) DVTs - INR is therapeutic - continue Coumadin. Due to mild swelling, will order doppler ultrasound. Full code - anticoagulated with Coumadin Total time for this admit including review of labs, meds, imaging - discussion with pt and ER attending - 32 min Continued [facility] stay due to: other (placement) Discharge planning: rehab hospital
[2017-05-22 07:12] VITALS: BP 114/73; PULSE 80; TEMP 36.8; O2SAT 91
[2017-05-22] MEDS: CLONAZEPAM 0.5 MG TAB PO SCH ×2 (07:46→21:45)
[2017-05-22] MEDS: VENLAFAXINE HCL XR 150 MG CAPXR PO SCH ×2 (07:47→21:46)
[2017-05-22] MEDS: PANTOprazole SOD 40 MG TAB PO SCH ×2 (07:47→21:46)
[2017-05-22] MEDS: VENLAFAXINE HCL XR 75 MG CAPXR PO SCH (07:47)
[2017-05-22] MEDS: BusPIRone 15 MG TAB PO SCH ×2 (07:47→21:43)
[2017-05-22] MEDS: TRAMADOL HCL 50 MG TAB PO PRN ×3 (07:47→23:26)
[2017-05-22] MEDS: DOCUSATE SODIUM 100 MG CAP PO SCH ×3 (07:48→21:43)
[2017-05-22] MEDS: POLYETHYLENE (MIRALAX) 17 GM PACK PO SCH (07:48)
[2017-05-22] MEDS: PHENYTOIN SODIUM ER 100 MG CAP PO SCH ×2 (07:49→21:47)
[2017-05-22] MEDS: PHENYTOIN 50 MG CHEW PO SCH (07:49)
[2017-05-22 08:26] LABS: INR 2.3 (0.9-1.1)
[2017-05-22] MEDS ORDERED: CALCIUM 600MG + VIT D 400 IU TAB PO SCH (12:00)
[2017-05-22 14:56] VITALS: BP 113/76; PULSE 94; TEMP 37; O2SAT 93
[2017-05-22 16:00] VITALS: O2SAT 93
[2017-05-22] MEDS ORDERED: NURSING VERBAL MED ORDER ONE (19:00)
[2017-05-22] MEDS: CALCIUM 600MG + VIT D 400 IU TAB PO SCH (19:50)
[2017-05-22] MEDS: WARFARIN SOD 5 MG TAB PO SCH (21:44)
--- NOTE | 2017-05-22 22:43 | Progress Note ---
Subjective Date of Service: May 22, 2017. Subjective Patient reports that she may not be able to take care of herself in the home. She reports some chest pain and points to her right lower chest. Patient denies nausea, vomiting, diarrhea. Review of Systems Constitutional: No fever, No chills Respiratory: No cough, No sputum Cardiac: No chest pain, No orthopnea Abdomen: No pain, No nausea Musculoskeletal: No joint pain Neurologic: No memory loss, No paralysis Psychiatric: No depression symptoms, No anhedonism Heme: No abnormal bleeding/bruising Endo: No fatigue All Other Systems: Reviewed and Negative Objective Vital Signs Date Time Temp Pulse Resp B/P (MAP) Pulse Ox O2 Delivery O2 Flow Rate FiO2 05/22/17 16:00 93 Room Air 05/22/17 14:56 37.0 94 18 113/76 (88) 93 Room Air 05/22/17 08:00 Room Air 05/22/17 07:12 36.8 80 18 114/73 (87) 91 Room Air 05/22/17 00:06 36.3 81 18 154/87 (109) 95 Room Air 05/21/17 23:50 Room Air Physical Exam General Appearance: WD/WN, no apparent distress Neck: supple, no adenopathy Respiratory/Chest: chest non-tender, lungs clear, + pertinent finding ( tenderness on right side near level of 10 rib) Cardiovascular: regular rate, rhythm, no edema Abdomen: normal bowel sounds, non tender, soft Extremities: normal range of motion, non-tender Skin: normal color Laboratory Results Last 24 Hours Test 05/22/17 07:54 Prothrombin Time 26.0 SECONDS Prothromb Time International Ratio 2.3 Assessment and Plan 67 y/o F Hx DVTs, seizure disorder, depression, chronic unstable gait - uses walker. Suffered a fall 3 days prior sustaining fractures of the right posterior eighth, ninth, and 10th ribs. Pain has been difficult to control and pt has not been able to ambulate and function independently as a result. She had arrived at the hospital requesting transfer to a rehab facility. 1) Rib fractures - gait dysfunction - Patient requesting transfer to [facility] - PT/OT eval pending for AM - pain control provided Transfer is denied. Will discuss with child support case officer tomorrow to assess placement. PT recommend discharge to acute rehab when medically cleared by [facility]. 2) Seizure disorder - continue Dilantin 3) Depression - cont Venlafaxine 4) DVTs - INR is therapeutic - continue Coumadin. Doppler was positive for DVTs, unsure what age these DVTs are. At this time, will continue with current management and defer to outpatient provider. To not believe there will be a benefit to an IVC filter. Full code - anticoagulated with Coumadin Continued [facility] stay due to: other (placement) Discharge planning: rehab hospital
[2017-05-22 23:49] VITALS: BP 133/81; PULSE 94; TEMP 36.6; O2SAT 92
[2017-05-23] MEDS: PHENOBARBITAL 32.4 MG TAB PO SCH (00:38)
[2017-05-23 04:00] VITALS: O2SAT 93
[2017-05-23] MEDS: TRAMADOL HCL 50 MG TAB PO PRN ×3 (06:15→18:40)
[2017-05-23 07:37] VITALS: BP 125/75; PULSE 79; TEMP 36.6; O2SAT 94
[2017-05-23 08:01] LABS: INR 2.4 (0.9-1.1); PROTHROMBIN TIME (PATIENT) 26.3 SECONDS (9.0-12.0)
[2017-05-23] MEDS: BusPIRone 15 MG TAB PO SCH (08:38)
[2017-05-23] MEDS: VENLAFAXINE HCL XR 150 MG CAPXR PO SCH (08:38)
[2017-05-23] MEDS: PANTOprazole SOD 40 MG TAB PO SCH (08:38)
[2017-05-23] MEDS: DOCUSATE SODIUM 100 MG CAP PO SCH ×2 (08:38→14:01)
[2017-05-23] MEDS: VENLAFAXINE HCL XR 75 MG CAPXR PO SCH (08:39)
[2017-05-23] MEDS: PHENYTOIN 50 MG CHEW PO SCH (08:39)
[2017-05-23] MEDS: PHENYTOIN SODIUM ER 100 MG CAP PO SCH (08:39)
[2017-05-23] MEDS: CALCIUM 600MG + VIT D 400 IU TAB PO SCH ×2 (08:40→17:07)
[2017-05-23] MEDS: CLONAZEPAM 0.5 MG TAB PO SCH (08:46)
[2017-05-23] MEDS: POLYETHYLENE (MIRALAX) 17 GM PACK PO SCH (11:14)
[2017-05-23] MEDS ORDERED: NURSING DECISION MEDICATION ORDER SCH (13:30)
[2017-05-23] MEDS ORDERED: CHOLECALCIFEROL 1000 INTER.UNIT TAB PO ONE (13:45)
[2017-05-23 15:01] VITALS: BP 122/58; PULSE 91; TEMP 36.6; O2SAT 91
--- NOTE | 2017-05-23 15:18 | Discharge Instructions ---
Discharge Instructions Date of Service May 23, 2017. Admission Reason for Admission: Gait Abnormality, Ribs, Multiple Fractures Discharge Discharge Diagnosis / Problem: Multiple Rib fractures/ chronic DVT Discharge Goals Goal(s): Decrease discomfort Activity Recommendations Activity Limitations: as noted below Lifting Limitations: gradually increase as tolerated Exercise/Sports Limitations: gradually increase as tolerated Shower/Bathe: no limitations Driving or Machine Use: no limitations . Instructions / Follow-Up Instructions / Follow-Up F/U with PCP in 1 week Current Hospital Diet Patient's current hospital diet: AHA Diet (Heart Healthy) Discharge Diet Recommended Diet: AHA Diet (Heart Healthy) Pending Studies Studies pending at discharge: no Medical Emergencies . Who to Call and When: Medical Emergencies: If at any time you feel your situation is an emergency, please call 911 immediately. . Non-Emergent Contact Non-Emergency issues call your: Primary Care Provider Call Non-Emergent contact if: your pain is worsening . . "Provider Documentation" section prepared by Ciro Rodríguez. . VTE Core Measure Inpt VTE Proph given/why not?: Warfarin (Coumadin)
[2017-05-23] MEDS ORDERED: ULT50X PO (15:22)
--- NOTE | 2017-05-23 15:24 | Discharge Summary ---
Discharge Summary Date of Service May 23, 2017. Discharge Summary Admission Date: May 20, 2017 at 21:08 Discharge Date: May 23, 2017 Immunizations: Have You Had Influenza Vaccine: No Influenza Vaccine Date: Aug 24, 2009 History of Tetanus Vaccine?: No History of Pneumococcal: No History of Hepatitis B Vaccine: No Hospital Course 67 y/o F Hx DVTs, seizure disorder, depression, chronic unstable gait - uses walker. Suffered a fall 3 days prior sustaining fractures of the right posterior eighth, ninth, and 10th ribs. Pain has been difficult to control and pt has not been able to ambulate and function independently as a result. She had arrived at the hospital requesting transfer to a rehab facility. She could not however qualify for placement without a PT/OT. 1) Rib fractures - gait dysfunction - Patient requesting transfer to [facility] - PT/OT eval pending for AM - pain control provided PT recommend discharge to acute rehab when medically cleared by [facility]. 2) Seizure disorder - continue Dilantin 3) Depression - cont Venlafaxine 4) DVTs - INR is therapeutic - continue Coumadin. Due to mild swelling, will order doppler ultrasound. Full code - anticoagulated with Coumadin Total time for this admit including review of labs, meds, imaging - discussion with pt and ER attending - 32 min This includes examination of the patient, discharge planning, medication reconciliation, and communication with other providers. Discharge Instructions Please refer to the electronic Patient Visit Report (Discharge Instructions) for additional information.
[2017-05-23 16:57] VITALS: BP 122/58; PULSE 91; TEMP 36.6; O2SAT 91
== END 2017-05-23 18:50 | disposition home health service (06) ==
LOC: C.EDB 15:31 → C.MS2W 21:08 → ENRESERV 22:00
PROVIDERS: ADMIT Internal Medicine; ATTEND Internal Medicine Sports Medicine
DX: S22.41XA Multiple fractures of ribs, right side, initial encounter for closed fracture (principal); W19.XXXA Unspecified fall, initial encounter; Z86.73 Personal history of transient ischemic attack (TIA), and cerebral infarction without residual deficits; G40.909 Epilepsy, unspecified, not intractable, without status epilepticus; F32.9 Major depressive disorder, single episode, unspecified; Z86.718 Personal history of other venous thrombosis and embolism; R26.9 Unspecified abnormalities of gait and mobility; Z79.899 Other long term (current) drug therapy

== ENCOUNTER → 2017-07-08 | Outpatient (CLI) | payer BC ==
[~2017-07-08] MED LIST changes: +ACET-1256 PO; -ACET-1311 PO; -BUSP15TA70 PO; +CALC-393 PO; -CALC625T PO; -CALCTAB5 PO; -CHOL100010 PO; +CHOL1TAB76 PO; +GLYCDRO6 OP; +MULT-663 PO; -POLY99.02 OP
[2017-07-08 13:20] LABS: URINE APPEARANCE CLOUDY (CLEAR); URINE BILIRUBIN NEG (NEG); URINE COLOR YELLOW; URINE EPITHELIAL CELL AUTO 20-30 /lpf (0-5); URINE NITRITE NEG (NEG); URINE SPECIFIC GRAVITY 1.013 (1.000-1.030); UROBILINOGEN NEG (NEG)
[2017-07-08 13:25] LABS: MANUAL MICROSCOPIC REQUIRED? NO; REVIEW REQ? NO
== END | disposition home or self-care (01) ==
LOC: C.LABBC 12:14
PROVIDERS: ATTEND Physician Assistant Medical
DX: R30.0 Dysuria (principal)

== ENCOUNTER → 2017-09-05 | Outpatient (CLI) | payer BC ==
[~2017-09-05] MED LIST changes: +Juice Plus PO; -OMEP20TA PO; +WARF4TAB PO; -WARF4TAB8 PO
--- NOTE | 2017-09-05 15:48 | DIAGNOSTIC IMAGING REPORT ---
BILATERAL LOWER EXTREMITY VENOUS DOPPLER HISTORY: Acute right leg pain Z86.711 History of pulmonary [id number] Acute pain of right. History of nonocclusive thrombus of the right popliteal and left superficial femoral veins COMPARISON STUDY: Duplex venous Doppler study 05/21/2017. FINDINGS: RIGHT: Chronic fibrin stranding with nonocclusive thrombus involves the right popliteal vein and distal portion of the superficial femoral vein. Otherwise, there is normal compressibility, flow, and augmentation within the right lower extremity deep venous system. Mildly complex right Turcios's cyst cyst measures 3.0 x 4.8 x 1.6 cm. LEFT: Chronic fibrin stranding with nonocclusive thrombus is again seen within the proximal aspect of the superficial femoral vein. Otherwise, there is normal compressibility, flow, and augmentation within the left lower extremity deep venous system. IMPRESSION: Nonocclusive deep venous thrombi with fibrin stranding within the right popliteal and bilateral superficial femoral veins appears chronic, however the thrombus within the right superficial femoral vein was not clearly seen on comparison study 05/21/2017.. Electronically signed by: Raman Scott M.D. 09/05/2017 3:46 PM Dictated Date/Time: 09/05/2017 3:41 PM
== END | disposition home or self-care (01) ==
PROVIDERS: ATTEND Physician Assistant Medical
DX: M25.561 Pain in right knee (principal); Z86.711 Personal history of pulmonary embolism

== ENCOUNTER 2017-09-12 12:01 | Emergency (ER) | payer BC ==
[~2017-09-12] VITALS: Ht 162.6 cm; Wt 87.6 kg
[2017-09-12 12:02] VITALS: TEMP 36.9; Ht 162.6 cm; Wt 87.6 kg
[2017-09-12] MEDS ORDERED: SODIUM CHLORIDE 0.9% 1000ML 1,000 ML IV STA (12:24)
[2017-09-12] MEDS ORDERED: DLN100 PO (12:43)
[2017-09-12] MEDS ORDERED: DLN100 PEG (12:43)
--- NOTE | 2017-09-12 12:55 | DIAGNOSTIC IMAGING REPORT ---
CHEST ONE VIEW PORTABLE CLINICAL HISTORY: EVALUATE ALTERED MENTAL STATUS/WEAKNESS COMPARISON STUDY: Chest CT May 20, 2017. FINDINGS: Elevation of the right hemidiaphragm is unchanged. Linear bibasilar opacities suggest atelectasis. There are a few old left rib fractures. No pneumothorax or pleural effusion is noted. There is no evidence for pulmonary edema. Cardiomediastinal silhouette is stable. A moderate sized hiatal hernia is again noted. IMPRESSION: 1. No acute findings. No change in appearance the chest. 2. Stable elevation of the right hemidiaphragm with bibasilar atelectasis. Electronically signed by: Jay Herbert M.D. 09/12/2017 12:54 PM Dictated Date/Time: 09/12/2017 12:53 PM
[2017-09-12 13:16] LABS: BASO % 0.2 %; BASO ABS # 0.02 K/uL (0-0.2); EOS % 0.1 %; EOS ABS # 0.01 K/uL (0-0.5); HEMATOCRIT 43.9 % (37-47); HEMOGLOBIN 15.2 g/dL (12.0-16.0); IG# 0.02 K/uL (0.00-0.02); LYMPH % 20.7 %; LYMPH ABS # 1.91 K/uL (1.2-3.4); MEAN CELL VOLUME 91.3 fL (80-100); MEAN CORPUSCULAR HEMOGLOBIN 31.6 pg (25-34); MEAN CORPUSCULAR HGB CONC 34.6 g/dl (32-36); MEAN PLATELET VOLUME 10.5 fL (7.4-10.4); MONO % 16.2 %; NEUT % 62.6 %; NEUT ABS # 5.78 K/uL (1.4-6.5); PLATELET COUNT 175 K/uL (130-400); RED CELL DISTRIBUTION WIDTH CV 13.3 % (11.5-14.5); RED CELL DISTRIBUTION WIDTH SD 44.6 fL (36.4-46.3); WHITE BLOOD COUNT 9.24 K/uL (4.8-10.8)
[2017-09-12 13:50] LABS: ALT/SGPT 28 U/L (12-78); BLOOD UREA NITROGEN 8 mg/dl (7-18); CALCIUM 8.6 mg/dl (8.5-10.1); CARBON DIOXIDE 26 mmol/L (21-32); CREATININE 0.64 mg/dl (0.60-1.20); GLUCOSE 84 mg/dl (70-99); INFLUENZA B ANTIGEN Neg for Influ B (NEG); LIPASE 95 U/L (73-393); SODIUM 132 mmol/L (136-145)
[2017-09-12 13:53] LABS: ALKALINE PHOSPHATASE 86 U/L (45-117); CKMB 1.1 ng/ml (0.5-3.6); TOTAL PROTEIN 7.1 gm/dl (6.4-8.2)
[2017-09-12 14:00] VITALS: BP 136/68; PULSE 97; O2SAT 96
--- NOTE | 2017-09-12 14:12 | EMERGENCY ROOM VISIT NOTE ---
History Report prepared by [place]: Felicia Kimble Under the Supervision of: Dr. Jagjit Lee D.O. First contact with patient: 12:21 Chief Complaint: DEHYDRATION Stated Complaint: DEHYDRATION, SENT BY DOCTORS OFFICE FOR IV HYDRATI Nursing Triage Summary: I went to my doctors today and she says I am dehydrated and sent me here. C/o Nausea, weakness, lethargy, poor appetite, abdominal pain, and dry cough all starting Friday. Denies urinary symtpoms. Denies fevers. Flu swab at PCP (-) History of Present Illness The patient is a 67 year old female who presents to the Emergency Room with complaints of persistent flu-like symptoms since September 10, 2017. She woke up with stomach aches, weakness, dry cough, and chills at that time. She currently rates her discomfort a 5/10 in severity. She denies any vomiting or diarrhea. She states that she feels increased body warmth, though denies any fevers. She notes that she has become nauseous, especially from the smell of food. She was seen by her PCP and was informed that she was dehydrated. She was advised to come to the ED for evaluation. She has been drinking tea, water, and ross shade. She denies any sore throat or congestion. She has a history of GERD and a hiatal hernia. Source of History: patient Onset: September 10, 2017 Position: other (global ) Symptom Intensity: 5/10 Quality: other (flu-like symptoms ) Timing: other (persistent) Associated Symptoms: + chills, + cough (dry), + nausea, + abdominal pain ( stomach ache), + weakness, No fevers, No sorethroat, No vomiting, No diarrhea Note: She notes dehydration. She denies any congestion. Review of Systems See HPI for pertinent positives & negatives. A total of 10 systems reviewed and were otherwise negative. Past Medical & Surgical Medical Problems: (1) Anxiety (2) Depression (3) Gait abnormality (4) Ribs, multiple fractures (5) Seizure Surgical Problems: (1) H/O parathyroidectomy (2) Hx of tonsillectomy Family History Cancer Gallbladder disease Heart disease Hypertension Seizures Social History Smoking Status: Never Smoker Smokeless Tobacco Use: No Alcohol Use: none Drug Use: none Marital Status: Housing Status: lives with significant other Occupation Status: unemployed Current/Historical Medications Scheduled Calcium Carbonate (Calcium), 1 TAB PO BIDM Cholecalciferol (D 1999), 2 TABS PO BIDM Clonazepam (Klonopin), 0.25 MG PO BID Docusate Sodium (Colace), 1 CAP PO DAILY Uezppabj-Bbsgmdewhuhj-Fwrdjbcq (Artificial Tears), 1-2 DROPS OP UD Phenobarbital (Phenobarbital), 90 MG PO HS Phenytoin Sodium (Dilantin), 150 MG PO QAM Phenytoin Sodium (Dilantin), 100 MG PEG QPM Venlafaxine Hcl (Effexor Xr), 150 MG PO BID Venlafaxine Hcl (Effexor Xr), 75 MG PO QAM Warfarin Sodium (Coumadin), 5 MG PO [id number] Warfarin Sodium (Coumadin), 4 MG PO WK [Juice Plus], 1 DOSE PO DAILY Scheduled PRN Acetaminophen (Tylenol), 1,000 MG PO Q6H PRN for Pain or Fever Polyethylene Glycol 3350 (Miralax), 17 GM PO Q2D PRN for Constipation Allergies Coded Allergies: Codeine (Verified Adverse Reaction, Mild, dizziness, upset stomach, fainted, 09/12/17) Physical Exam Vital Signs Date Time Temp Pulse Resp B/P (MAP) Pulse Ox O2 Delivery O2 Flow Rate FiO2 09/12/17 13:05 91 09/12/17 13:00 88 16 130/77 96 Room Air 95 126/66 106 134/68 09/12/17 12:02 36.9 100 18 127/74 95 Room Air Physical Exam CONSTITUTIONAL/VITAL SIGNS: Reviewed / noted above. GENERAL: Non-toxic in appearance. INTEGUMENTARY: Warm, dry, and [place]. HEAD: Normocephalic. EYES: without scleral icterus or trauma. ENT/OROPHARYNX: clear and moist. LYMPHADENOPATHY/NECK: Is supple without lymphadenopathy or meningismus. RESPIRATORY: Lungs clear and equal. CARDIOVASCULAR: Regular rate and rhythm. GI/ABDOMEN: Soft and nontender. No organomegaly or pulsatile mass. No rebound or guarding. Normal bowel sounds. EXTREMITIES: Warm and well perfused. BACK: No CVA tenderness. NEUROLOGICAL: Intact without focal deficits. PSYCHIATRIC: normal affect. MUSCULOSKELETAL: Normally developed with good muscle tone. Medical Decision & Procedures ER Provider Diagnostic Interpretation: Radiology results as stated below per my review and radiologist interpretation: CHEST ONE VIEW PORTABLE CLINICAL HISTORY: EVALUATE ALTERED MENTAL STATUS/WEAKNESS COMPARISON STUDY: Chest CT May 20, 2017. FINDINGS: Elevation of the right hemidiaphragm is unchanged. Linear bibasilar opacities suggest atelectasis. There are a few old left rib fractures. No pneumothorax or pleural effusion is noted. There is no evidence for pulmonary edema. Cardiomediastinal silhouette is stable. A moderate sized hiatal hernia is again noted. IMPRESSION: 1. No acute findings. No change in appearance the chest. 2. Stable elevation of the right hemidiaphragm with bibasilar atelectasis. Electronically signed by: Jay Herbert M.D. 09/12/2017 12:54 PM Dictated Date/Time: 09/12/2017 12:53 PM Laboratory Results 09/12/17 13:00 Red Blood Count 4.81, Mean Corpuscular Volume 91.3, Mean Corpuscular Hemoglobin 31.6, Mean Corpuscular Hemoglobin Concent 34.6, Mean Platelet Volume 10.5, Neutrophils (%) (Auto) 62.6, Lymphocytes (%) (Auto) 20.7, Monocytes (%) (Auto) 16.2, Eosinophils (%) (Auto) 0.1, Basophils (%) (Auto) 0.2, Neutrophils # (Auto ) 5.78, Lymphocytes # (Auto) 1.91, Monocytes # (Auto) 1.50, Eosinophils # (Auto ) 0.01, Basophils # (Auto) 0.02 09/12/17 13:00 Test 09/12/17 12:24 09/12/17 13:00 09/12/17 13:49 Creatine Kinase MB Ratio (0-3.0) White Blood Count 9.24 K/uL (4.8-10.8) Red Blood Count 4.81 M/uL (4.2-5.4) Hemoglobin 15.2 g/dL (12.0-16.0) Hematocrit 43.9 % (37-47) Mean Corpuscular Volume 91.3 fL (80-100) Mean Corpuscular Hemoglobin 31.6 pg (25-34) Mean Corpuscular Hemoglobin Concent 34.6 g/dl (32-36) Platelet Count 175 K/uL (130-400) Mean Platelet Volume 10.5 fL (7.4-10.4) Neutrophils (%) (Auto) 62.6 % Lymphocytes (%) (Auto) 20.7 % Monocytes (%) (Auto) 16.2 % Eosinophils (%) (Auto) 0.1 % Basophils (%) (Auto) 0.2 % Neutrophils # (Auto) 5.78 K/uL (1.4-6.5) Lymphocytes # (Auto) 1.91 K/uL (1.2-3.4) Monocytes # (Auto) 1.50 K/uL (0.11-0.59) Eosinophils # (Auto) 0.01 K/uL (0-0.5) Basophils # (Auto) 0.02 K/uL (0-0.2) RDW Standard Deviation 44.6 fL (36.4-46.3) RDW Coefficient of Variation 13.3 % (11.5-14.5) Immature Granulocyte % (Auto) 0.2 % Immature Granulocyte # (Auto) 0.02 K/uL (0.00-0.02) Anion Gap 9.0 mmol/L (3-11) Est Creatinine Clear Calc Drug Dose 90.2 ml/min Estimated GFR () 106.3 Estimated GFR (Non- 91.7 BUN/Creatinine Ratio 13.2 (10-20) Calcium Level 8.6 mg/dl (8.5-10.1) Total Bilirubin 0.3 mg/dl (0.2-1) Alanine Aminotransferase (ALT/SGPT) 28 U/L (12-78) Alkaline Phosphatase 86 U/L (45-117) Creatine Kinase MB 1.1 ng/ml (0.5-3.6) Troponin I < 0.015 ng/ml (0-0.045) Total Protein 7.1 gm/dl (6.4-8.2) Albumin 3.0 gm/dl (3.4-5.0) Lipase 95 U/L (73-393) Phenytoin (Dilantin) Level 11.8 mcg/mL (10-20) Influenza Type A Antigen Neg for Influ A (NEG) Influenza Type B Antigen Neg for Influ B (NEG) Laboratory results as stated above per my review. Medications Administered Medications (Trade) Dose Ordered Sig/Anika Route Start Time Stop Time Status Last Admin Dose Admin Sodium Chloride 1,000 ml @ 999 mls/hr Q1H1M STAT IV 09/12/17 12:24 09/12/17 13:24 DC 09/12/17 13:00 999 MLS/HR ECG Indication: weakness Rate (beats per minute): 91 Rhythm: normal sinus Findings: no acute ischemic change, no ectopy Change: Patient's electrocardiogram interpreted by me. ED Course 1230: Previous medical records were reviewed. The patient was evaluated in room A3. A complete history and physical examination was performed. 1224: Ordered Sodium Chloride 1,000 ml @ 999 mls/hr IV 1412: I reassessed the patient at this time. She is feeling better and resting comfortably. I discussed the results and treatment plan with the patient. I answered all pertaining questions that she had. She expressed understanding and verbalized agreement. The patient will be discharged home. Medical Decision Differentials include: Acute coronary syndrome, myocardial infarction, CVA, TIA , anemia, infection, pneumonia, UTI, pyelonephritis, poor nutrition, dehydration , electrolyte disturbance, and hypoglycemia. This is a 59-year-old female who presents to the ED with a chief complaint of dehydration. The patient was seen by the PCP earlier today sent here for fluids. The patient reports some nausea as well as a mild headache, tiredness, decreased appetite, dry cough and generalized fatigue. She denies any vomiting or diarrhea. Her symptoms started a couple of days ago. Her physical exam was unremarkable. Her vital signs are stable. EKG shows a normal sinus rhythm. Flu swab was negative. CBC and complete metabolic panel were normal, troponin was negative. Dilantin level is normal. The patient was hydrated with normal saline IV. She was told the results of her test per cheese felt to be stable for discharge. She was discharged with a prescription for Zofran. She was not nauseated at the time of discharge. Medication Reconcilliation Current Medication List: was personally reviewed by me Blood Pressure Screening Patient's blood pressure: Normal blood pressure Impression Primary Impression: Dehydration Additional Impression: Malaise and fatigue Scribe Attestation The scribe's documentation has been prepared under my direction and personally reviewed by me in its entirety. I confirm that the note above accurately reflects all work, treatment, procedures, and medical decision making performed by me. Departure Information Dispostion Home / Self-Care Prescriptions Ondasetron Odt (ZOFRAN ODT) 4 Mg Tab 4 MG SL Q6H for Nausea, #20 TAB Prov: Jagjit Lee D.O. 09/12/17 Referrals Julienne Brink P.A. (PCP) Forms HOME CARE DOCUMENTATION FORM, IMPORTANT VISIT INFORMATION, WORK / SCHOOL INSTRUCTIONS Patient Instructions My [facility] Additional Instructions Follow-up with your doctor for further care and evaluation in 1-2 days. Return to the emergency department for worsening or new symptoms or any concerns. You have been examined and treated today on an emergency basis only. This is not a substitute for, or an effort to provide, complete comprehensive medical care. It is impossible to recognize and treat all injuries or illnesses in a single emergency department visit. It is therefore important that you follow up closely with your doctor. Call as soon as possible for an appointment. Problem Qualifiers
[2017-09-12] MEDS ORDERED: ONDA4TAB10 SL (14:16)
[2017-09-12 14:17] LABS: POTASSIUM 3.5 mmol/L (3.5-5.1)
[2017-09-12 14:21] LABS: INR 3.3 (0.9-1.1)
[2017-09-12 14:25] LABS: AST/SGOT 16 U/L (15-37)
[2017-09-12 14:49] LABS: PTT PATIENT 53.8 SECONDS (21.0-31.0)
== END 2017-09-12 14:29 | disposition home or self-care (01) ==
LOC: C.EDB 12:01 → C.EDA 14:29
DX: E86.0 Dehydration (principal); R53.83 Other fatigue; R11.0 Nausea; F41.9 Anxiety disorder, unspecified; F32.9 Major depressive disorder, single episode, unspecified; R56.9 Unspecified convulsions; Z79.01 Long term (current) use of anticoagulants; Z79.899 Other long term (current) drug therapy; Z80.9 Family history of malignant neoplasm, unspecified; Z83.79 Family history of other diseases of the digestive system; Z82.49 Family history of ischemic heart disease and other diseases of the circulatory system; Z82.0 Family history of epilepsy and other diseases of the nervous system

== ENCOUNTER → 2017-09-29 | Outpatient (CLI) | payer BC ==
[~2017-09-29] MED LIST changes: +DLN100 PEG; +DLN100 PO; -MULT-663 PO; +ONDA4TAB10 SL; -PHEN50CH PO; -PHN/100 PO
--- NOTE | 2017-09-29 10:52 | DIAGNOSTIC IMAGING REPORT ---
ULTRASOUND BILATERAL LOWER EXTREMITY VENOUS CLINICAL HISTORY: Right knee pain. COMPARISON STUDY: I lateral lower extremity venous ultrasound dated 09/05/2017. TECHNIQUE: Real-time, grayscale, and color Doppler sonography of the deep veins of the right and left lower extremity was performed from the inguinal crease to the calf. Compression and augmentation were utilized. FINDINGS: Right lower extremity: Chronic appearing nonocclusive thrombus is again seen in the mid to distal superficial femoral vein and within the right popliteal vein. The common femoral vein is patent and normally compressible. The greater saphenous vein and the profunda femoris vein at the junction with the common femoral vein are clear. The visualized calf veins are patent. A popliteal cyst measures 4.2 x 1.0 x 1.6 cm. Left lower extremity: Chronic appearing nonocclusive thrombus is again seen within the proximal superficial femoral vein. The remaining deep veins of the left lower extremity are clear. The common femoral vein, the mid to distal superficial femoral vein, and the popliteal vein are patent and normally compressible. The greater saphenous vein and the profunda femoris vein at the junction with the common femoral vein are clear. The visualized calf veins are patent. IMPRESSION: 1. Nonocclusive and chronic appearing bilateral deep venous thrombosis as above. This is similar to the 09/05/2017 examination. 2. Small right-sided Turcios's cyst. Electronically signed by: Carmine Causey M.D. 09/29/2017 10:51 AM Dictated Date/Time: 09/29/2017 10:48 AM SAEED
== END | disposition home or self-care (01) ==
LOC: C.ULTR 09:26
PROVIDERS: ATTEND Physician Assistant Medical
DX: M25.561 Pain in right knee (principal)

== ENCOUNTER → 2017-10-01 | Outpatient (CLI) | payer BC ==
[2017-10-01 16:56] LABS: BASO % 0.3 %; BASO ABS # 0.03 K/uL (0-0.2); EOS % 0.5 %; EOS ABS # 0.05 K/uL (0-0.5); HEMATOCRIT 46.3 % (37-47); HEMOGLOBIN 15.9 g/dL (12.0-16.0); IG# 0.02 K/uL (0.00-0.02); LYMPH % 26.4 %; LYMPH ABS # 2.46 K/uL (1.2-3.4); MEAN CELL VOLUME 91.7 fL (80-100); MEAN CORPUSCULAR HEMOGLOBIN 31.5 pg (25-34); MEAN CORPUSCULAR HGB CONC 34.3 g/dl (32-36); MEAN PLATELET VOLUME 10.3 fL (7.4-10.4); MONO ABS # 0.93 K/uL (0.11-0.59); NEUT % 62.6 %; NEUT ABS # 5.83 K/uL (1.4-6.5); PLATELET COUNT 264 K/uL (130-400); RED CELL DISTRIBUTION WIDTH CV 13.5 % (11.5-14.5); WHITE BLOOD COUNT 9.32 K/uL (4.8-10.8)
[2017-10-01 17:11] LABS: BLOOD UREA NITROGEN 14 mg/dl (7-18); CALCIUM 9.1 mg/dl (8.5-10.1); CARBON DIOXIDE 25 mmol/L (21-32); CREATININE 0.67 mg/dl (0.60-1.20); GLUCOSE 100 mg/dl (70-99); POTASSIUM 4.3 mmol/L (3.5-5.1); SODIUM 133 mmol/L (136-145)
== END | disposition home or self-care (01) ==
LOC: C.LABBC 14:03
PROVIDERS: ATTEND Physician Assistant Medical
DX: Z00.00 Encounter for general adult medical examination without abnormal findings (principal); R53.1 Weakness

== ENCOUNTER → 2017-10-09 | Outpatient (CLI) | payer BC ==
[~2017-10-09] MED LIST changes: -ONDA4TAB10 SL
[2017-10-09 10:07] LABS: BASO % 0.3 %; BASO ABS # 0.02 K/uL (0-0.2); EOS ABS # 0.06 K/uL (0-0.5); HEMATOCRIT 44.3 % (37-47); HEMOGLOBIN 15.4 g/dL (12.0-16.0); IG# 0.01 K/uL (0.00-0.02); LYMPH % 29.4 %; MEAN CORPUSCULAR HEMOGLOBIN 31.6 pg (25-34); MEAN CORPUSCULAR HGB CONC 34.8 g/dl (32-36); MEAN PLATELET VOLUME 9.6 fL (7.4-10.4); MONO % 9.6 %; MONO ABS # 0.59 K/uL (0.11-0.59); NEUT % 59.5 %; NEUT ABS # 3.64 K/uL (1.4-6.5); PLATELET COUNT 215 K/uL (130-400); RED CELL DISTRIBUTION WIDTH SD 45.8 fL (36.4-46.3); WHITE BLOOD COUNT 6.12 K/uL (4.8-10.8)
[2017-10-09 10:21] LABS: HEMOGLOBIN A1C 5.3 % (4.5-5.6)
[2017-10-09 10:28] LABS: PHENYTOIN (DILANTIN) 11.1 mcg/mL (10-20)
[2017-10-09 10:44] LABS: ALBUMIN 3.6 gm/dl (3.4-5.0); ALT/SGPT 27 U/L (12-78); AST/SGOT 17 U/L (15-37); BLOOD UREA NITROGEN 13 mg/dl (7-18); CALCIUM 8.9 mg/dl (8.5-10.1); CARBON DIOXIDE 26 mmol/L (21-32); CREATININE 0.64 mg/dl (0.60-1.20); GLUCOSE 93 mg/dl (70-99); POTASSIUM 3.7 mmol/L (3.5-5.1); SODIUM 135 mmol/L (136-145)
[2017-10-09 11:06] LABS: ALKALINE PHOSPHATASE 85 U/L (45-117); CHOLESTEROL 174 mg/dl (0-200); LDL CHOLESTEROL CALCULATED 80 mg/dl; TOTAL PROTEIN 7.7 gm/dl (6.4-8.2)
== END | disposition home or self-care (01) ==
LOC: C.LAB1850 09:09
PROVIDERS: ATTEND Student in an Organized Health Care Education/Training Program
DX: Z79.899 Other long term (current) drug therapy (principal)

== ENCOUNTER → 2017-10-16 | Outpatient (CLI) | payer BC ==
--- NOTE | 2017-10-16 16:14 | DIAGNOSTIC IMAGING REPORT ---
R KNEE 1 OR 2 VIEWS ROUTINE HISTORY: 67 years-old Female M25.561 Acute pain of right [id number] acute right knee pain COMPARISON: None available TECHNIQUE: 2 views of the right knee FINDINGS: Mild lateral compartment with moderate medial and patellofemoral osteoarthritis. Chondrocalcinosis is also noted in the lateral compartment. The bones appear mildly demineralized. There is no acute fracture or subluxation identified. Moderate joint effusion. IMPRESSION: 1. Moderate joint effusion without acute fracture or subluxation. 2. 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 The above report was generated using voice recognition software. It may contain grammatical, syntax or spelling errors. Electronically signed by: Raman Scott M.D. 10/16/2017 4:12 PM Dictated Date/Time: 10/16/2017 4:11 PM
== END | disposition home or self-care (01) ==
LOC: C.RADBC 15:58
PROVIDERS: ATTEND Physician Assistant Medical
DX: M25.561 Pain in right knee (principal); M25.461 Effusion, right knee; M17.11 Unilateral primary osteoarthritis, right knee

== ENCOUNTER 2024-08-21 14:10 | Inpatient (IN) ==
--- NOTE | 2024-08-21 14:31 | Emergency Department Note ---
Impression & Plan Generalized weakness, Dizziness ED Provider Note HISTORY OF PRESENT ILLNESS: Patient is a 74-year-old female presenting with dizziness and leg weakness. Patient reports that she woke up this morning and was going about her day when at 9:00 she acutely developed dizziness. She describes it as the room seeming to spin. She states that has been constant since onset. She states that both of her legs feel very weak like they are going to give out. She ambulates with a walker at baseline but was having difficulties getting around at home secondary to bilateral leg weakness. Denies any chest pain or shortness of breath. She is on Coumadin. Denies any nausea or vomiting. Denies any abdominal pain. Denies any recent fevers. Reports feeling very weak and dizzy. Denies any recent falls or head injury. Denies any chiropractic manipulation of her neck. Denies any numbness or tingling in her extremities. Denies any headache. Denies any changes in vision, such as double or blurry vision. ROS: as above PHYSICAL EXAM: Constitutional: Patient appears in no acute distress. Morbidly obese HENT: Head: Normocephalic and atraumatic. Eyes: EOMI, PERRL Mouth/Throat: Mucous membranes moist. Neck: Trachea midline. Neck supple. Cardiovascular: RRR, No murmurs, rubs or gallops. Intact distal pulses. Pulmonary/Chest: No respiratory distress. Breath sounds clear and equal bilaterally. No wheezes or rales. Abdominal: Abdomen soft, no tenderness, rebound or guarding. Musculoskeletal: No edema, tenderness or deformity noted. Skin: Warm and dry. No rash, erythema, pallor or cyanosis Psychiatric: Appropriate mood and affect for situation. Neurological: Alert and keenly responsive. Facies symmetric. Able to raise eyebrows, close eyes, smile, puff mouth, stick out tongue, move tongue left and right and raise palate symmetrically. Able to shrug shoulders. PERRLA. SILT to forehead below eye and at jawline. Can hear soft noise bilaterally. Good finger to nose. Strength 5/5 in bilateral upper and lower extremities. SILT throughout bilateral upper and lower extremities. MDM: - Vitals signs showed hypertension and tachycardia. - Patient presents to the emergency department over 5 hours past onset of symptoms. She is not within the window for TNK. She has no focal neurological deficits on examination. - History obtained via patient. History as above. - Chronic conditions affecting care: morbid obesity; anxiety/depression; GERD; DVT/PE - Differential diagnoses include, but are not limited to: CVA; intracranial hemorrhage; ACS; dysrhythmia; electrolyte abnormality; UTI; pneumonia - Order placed for continuous cardiac monitoring. At this time, monitor showed rate of 87 bpm with normal sinus rhythm, per my interpretation. - External medical records reviewed. Primary care visit note dated 07/26/2024 was reviewed. Patient was seen for infection under her breast/Nataly being treated with nystatin. - EKG interpreted by myself showed normal sinus rhythm. Rate 90 bpm. QT 358. No acute ischemic changes. - Laboratory workup interpreted by myself showed normal WBC; therapeutic INR (2.3); normal electrolytes; normal troponin; normal CK; normal TSH - CT head wo contrast negative for acute pathology - CXR negative for pneumonia - Viral respiratory panel negative - UA ordered - On reassessment at 18:00, patient is still complaining of dizziness. She is very tearful. She was given 25 mg p.o. meclizine. Patient reports she still feels very weak and does not think she can be discharged home, she is unable to stand. Will discuss case with hospitalist service. - Discussion was had with director of casework department about patient's case and need for admission - Hospitalist, Dr. Gordon, consulted for admission - Patient admitted to [facility] hospitalist service for further evaluation and management. 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 (Acute) History of pulmonary embolism Chronic anticoagulation (Chronic) GERD (gastroesophageal reflux disease) Vitamin D deficiency (Acute) Osteoporosis (Chronic) Low back pain (Acute) Gait abnormality Debility Chronic venous insufficiency Medical History (Updated 08/21/24 @ 18:02 by Gaby Mata MD) Venous ulcer of left leg Closed fracture of right proximal humerus History of compression fracture of spine History of fracture of rib History of hyperparathyroidism (~2016) Multiple thyroid nodules Lupus anticoagulant disorder Internal hemorrhoids Hearing loss Cyst of kidney, acquired Constipation Benign familial tremor Osteoarthritis Degenerative disc disease Hiatal hernia Glaucoma NO DROPS CURRENTLY. Depression Anxiety Migraine Stroke AN Surgical History H/O tooth extraction History of cataract surgery RT on 09/30/18: was given 2mg of versed and 100mcg of fentanyl without apparent complications History of colonoscopy 02/2016 repeat 10 yrs S/P subtotal parathyroidectomy R/T NODULE History of tonsillectomy H/O parathyroidectomy Hx of tonsillectomy Family History Brother Heart disease Colorectal cancer Mother Congestive heart failure Osteoporosis Depression Gastroesophageal reflux disease Father Hypertension Irritable bowel syndrome Alzheimer disease Unknown Stroke syndrome Denies family history of Ovarian cancer Prostate cancer Breast cancer Lung cancer Social History Smoking Status: Unknown if ever smoked Second Hand Exposure: No; Do You Dip or Chew Tobacco: No; Hx Alcohol Use: Yes Alcohol type: wine Alcohol Intake Frequency: Monthly or Less Alcohol Intake Frequency Comment: Stated sample only occasionally Hx Substance Use: No Preferred Language: [place]an Communication Ability: Effective Visual Impairment: Diminished Hearing Ability: Hard of Hearing Padded Box Sewer Required: No Beliefs That Will Affect Care: Rastafarian Rastafarian Beliefs: SCIENTOLOGIST marital status: Current Living Situation: Spouse and Family Current Living Situation Comment: Spouse and son live in same home as patient. current occupational status: retired How many Children do You have: 3 How many Children do You have Comment: All children are local and able to assist as needed with care. Stated eldest daughter has been helping the most so far. Feels Safe at Home: Yes Childhood Exposure to Second-Hand Smoke: Yes Diet: regular caffeine: Yes Dental Care, Regularly: No Physical Activity Frequency: Does not Exercise Seatbelt Use: always Sunscreen Use: Yes Do you think of yourself as: straight/heterosexual Assistive Devices: Glasses Allergies Allergies Allergy/AdvReac Type Severity Reaction Status Date / Time codeine AdvReac Severe dizziness, Verified 07/26/24 15:04 upset stomach, fainted Home Meds Home Medications Medication Instructions Recorded Confirmed buspirone 30 mg tablet 30 mg PO BID 05/04/18 08/20/24 docusate sodium 100 mg capsule 100 mg PO QAM 05/04/18 08/20/24 calcium 600 mg (as carbonate)-vit 1 tab PO BIDM 04/02/19 08/20/24 D3 20 mcg (800 unit) chewable tablet (Caltrate plus D) artifi.tears(hypromellose)(PF) 0.3 1 drops ophthalmic (eye) BID PRN 10/19/19 08/20/24 % eye drops Dry Eye(S) polyethylene glycol 3350 17 gram 17 gm PO DAILY PRN Constipation 02/22/20 08/20/24 oral powder packet (Miralax) venlafaxine 150 mg 150 mg PO BID 05/29/21 08/20/24 capsule,extended release 24 hr venlafaxine 37.5 mg 37.5 mg PO QPM 05/29/21 08/20/24 tablet,extended release 24 hr venlafaxine 75 mg tablet,extended 75 mg PO QAM 05/29/21 08/20/24 release 24 hr clonazepam 0.5 mg tablet See Rx Instructions PO UD 05/27/22 08/20/24 acetaminophen 500 mg tablet 500 mg PO Q6H PRN pain 02/24/23 08/20/24 (Tylenol Extra Strength) triamcinolone acetonide 0.1 % 1 applic topical BID PRN itching 02/27/23 08/20/24 topical cream cholecalciferol (vitamin D3) 25 2,000 unit PO DAILY 10/13/23 08/20/24 mcg (1,000 unit) capsule mecobalamin (vitamin B12) 1,500 mcg PO DAILY 10/13/23 08/20/24 risperidone 1 mg tablet 2 mg PO BID anxiety 08/20/24 08/20/24 Previous Rx's Medication Instructions Recorded Dilantin Extended 100 mg capsule 100 mg PO BID #180 caps 09/30/23 (phenytoin sodium extended) conjugated estrogens 0.625 mg/gram 0.625 mg vaginal DAILY PRN vaginal 11/03/23 vaginal cream dryness #30 grams Dilantin Infatabs 50 mg chewable 50 mg PO QAM 90 days #90 tabs 11/17/23 tablet (phenytoin) phenobarbital 30 mg tablet 90 mg (3 x 30 mg) PO HS #270 tabs 03/02/24 furosemide 20 mg tablet 20 mg PO DAILY #90 tabs 03/25/24 potassium chloride 20 mEq 20 meq PO DAILY #60 tabs 06/30/24 tablet,extended release nystatin 100,000 unit/gram topical 1 applic topical BID #60 grams 07/26/24 powder warfarin 4 mg tablet See Rx Instructions PO UD #90 tabs 07/26/24 Results & Data (ED) Vital Signs Vital Signs - 24 hr 08/21/24 14:15 08/21/24 14:18 08/21/24 14:58 Temperature 36.7 C Temperature Source Oral Pulse Rate 92 H 90 88 Pulse Rate [Apical] Pulse Rate from SpO2 Sensor 90 Respiratory Rate 16 24 Blood Pressure 135/106 H 135/106 H Blood Pressure [Right Arm] Blood Pressure Mean 115 115 Blood Pressure Mean [Right Arm] Blood Pressure Position Lying Blood Pressure Position [Right Arm] Pulse Oximetry 94 95 Oxygen Delivery Method Room Air Room Air Sepsis Recent Fever Within 48 Hours No Sepsis New/Unexplained Change in Mental Status No Sepsis Action Taken by Nursing No Action Required 08/21/24 16:00 08/21/24 16:00 08/21/24 17:39 Temperature Temperature Source Pulse Rate 87 Pulse Rate [Apical] 87 Pulse Rate from SpO2 Sensor 88 Respiratory Rate 18 18 Blood Pressure 170/86 H Blood Pressure [Right Arm] 124/98 Blood Pressure Mean 114 Blood Pressure Mean [Right Arm] 106 Blood Pressure Position Blood Pressure Position [Right Arm] Lying Pulse Oximetry 94 94 98 Oxygen Delivery Method Room Air Room Air Room Air Sepsis Recent Fever Within 48 Hours Sepsis New/Unexplained Change in Mental Status Sepsis Action Taken by Nursing 08/21/24 18:02 Temperature Temperature Source Pulse Rate 96 H Pulse Rate [Apical] Pulse Rate from SpO2 Sensor Respiratory Rate Blood Pressure Blood Pressure [Right Arm] Blood Pressure Mean Blood Pressure Mean [Right Arm] Blood Pressure Position Blood Pressure Position [Right Arm] Pulse Oximetry Oxygen Delivery Method Sepsis Recent Fever Within 48 Hours Sepsis New/Unexplained Change in Mental Status Sepsis Action Taken by Nursing Laboratory Data 08/21/24 15:09 08/21/24 15:09 Lab Results 08/21/24 08/21/24 Range/Units 15:09 16:12 WBC 7.06 (4.8-10.8) K/ul RBC 4.74 (4.20-5.40) M/uL Hgb 14.6 (12.0-16.0) g/dl Hct 43.7 (37.0-47.0) % MCV 92.2 (80.0-100.0) fL MCH 30.8 (25.0-34.0) pg MCHC 33.4 (32.0-36.0) g/dL RDW Std Deviation 45.5 (36.4-46.3) fL RDW Coeff of Yaritza 13.3 (11.5-14.5) % Plt Count 228 (130-400) K/uL MPV 10.0 (9.4-12.4) fL Immature Gran % (Auto) 0.3 % Neut % (Auto) 69.2 % Lymph % (Auto) 19.4 % Sargent % (Auto) 10.1 % Eos % (Auto) 0.6 % Baso % (Auto) 0.4 % Neut # (Auto) 4.89 (1.40-6.50) K/uL Lymph # (Auto) 1.37 (1.20-3.40) K/uL Sargent # (Auto) 0.71 H (0.11-0.59) K/uL Eos # (Auto) 0.04 (0.00-0.50) K/uL Baso # (Auto) 0.03 (0.00-0.20) K/uL Immature Gran # (Auto) 0.02 (0.01-0.20) K/uL PT 23.0 H (9.0-12.0) Seconds INR 2.3 H (0.9-1.1) Sodium 138 (136-145) mmol/L Potassium 4.1 (3.5-5.1) mmol/L Chloride 100 (98-107) mmol/L Carbon Dioxide 33 H (21-32) mmol/L Anion Gap 5 (3-11) BUN 11 (6-23) mg/dl Creatinine 0.59 L (0.6-1.2) mg/dl Est Cr Clr Drug Dosing 99.5 ml/min eGFR 93.93 BUN/Creatinine Ratio 18.6 (10-20) Glucose 107 H (70-99(Fasting)) mg/dl Lactate 1.3 (0.4-2.0) mmol/L Calcium 8.7 (8.6-10.3) mg/dl Magnesium 1.9 (1.7-2.4) mg/dl Total Bilirubin 0.3 (0.2-1.0) mg/dl AST 16 (13-39) U/L ALT 15 (7-52) U/L Alkaline Phosphatase 92 (34-104) U/L Total Creatine Kinase 50 (26-192) U/L Troponin I High Sens 6.5 (0-14) pg/ml Total Protein 6.9 (6.0-8.3) gm/dl Albumin 3.8 (3.4-5.0) gm/dl Globulin 3.1 (2.5-4.0) gm/dl Albumin/Globulin Ratio 1.2 (0.9-2) TSH 1.104 (0.300-4.500) uIu/ml Adenovirus (PCR) Not Detected (NotDetected) B. pertussis DNA (PCR) Not Detected (NotDetected) B.parapertussis DNA PCR Not Detected (NotDetected) C. pneumoniae DNA (PCR) Not Detected (NotDetected) Coronavirus OC43 (PCR) Not Detected (NotDetected) Coronavirus HKU1 (PCR) Not Detected (NotDetected) Coronavirus 229E (PCR) Not Detected (NotDetected) SARS-CoV-2 (PCR) Not Detected (NotDetected) Coronavirus NL63 (PCR) Not Detected (NotDetected) Human Metapneumovir PCR Not Detected (NotDetected) Influenza Type A (PCR) Not Detected (NotDetected) Influenza Type B (PCR) Not Detected (NotDetected) M. pneumoniae (PCR) Not Detected (NotDetected) Parainfluenza 1 (PCR) Not Detected (NotDetected) Parainfluenza 2 (PCR) Not Detected (NotDetected) Parainfluenza 3 (PCR) Not Detected (NotDetected) Parainfluenza 4 (PCR) Not Detected (NotDetected) RSV (PCR) Not Detected (NotDetected) Entero/Rhino (PCR) Not Detected (NotDetected) Imaging Data Radiologist's Impression: Chest X-Ray 08/21/24 14:22 Chest radiograph, one view History: Chest pain Comparison: 10/06/2021 Findings: Single AP view of the chest performed. No focal consolidation or pleural effusion. No pneumothorax. The cardiomediastinal silhouette is within normal limits. Normal pulmonary vascularity. No evidence for lymphadenopathy. No visualized bony or soft tissue abnormality. Impression: Normal chest radiograph Electronically signed by Cristofer Hernández 08-21-2024 3:[address] 08/21/24 15:00 CT head without contrast History: Weakness and dizziness Comparison: 05/06/2020 Technique: Using multidetector thin collimation helical acquisition technique, axial, coronal and sagittal CT images from the skull base to the vertex were obtained without intravenous contrast. Dose reduction techniques were achieved by using automatic exposure control and/or adjustment of mA and/or kV according to patient size and/or use of iterative reconstruction technique. Findings: No intracranial hemorrhage, mass-effect, or midline shift. The ventricles are proportionate to the cerebral sulci. Chronic infarct redemonstrated of the right frontal operculum, otherwise the slade to white matter differentiation of the cerebral hemispheres is preserved. The basal cisterns are patent. The visualized paranasal sinuses are clear. Mastoid air cells are clear. Impression: No acute intracranial pathology. Electronically signed by Cristofer Hernández 08-21-2024 4:00 PM Discharge Plan Visit Data Chief Complaint: Leg Weakness, Bilateral ED Provider: Gaby Mata Discharge Problem: Generalized weakness, Dizziness Forms Stand Alone Forms: [facility] Prescriptions Prescriptions: No Action buspirone 30 mg tablet 30 mg PO BID docusate sodium 100 mg capsule 100 mg PO QAM artifi.tears(hypromellose)(PF) 0.3 % drops 1 drops OP BID PRN (Reason: Dry Eye(S)) polyethylene glycol 3350 [Miralax] 17 gram powder in packet 17 gm PO DAILY PRN (Reason: Constipation) venlafaxine 150 mg capsule,extended release 24hr 150 mg PO BID Rx Instructions: Total dose 225mg in AM (150mg + 75mg) acetaminophen [Tylenol Extra Strength] 500 mg tablet 500 mg PO Q6H PRN (Reason: pain) venlafaxine 75 mg tablet extended release 24hr 75 mg PO QAM Rx Instructions: Total dose 225mg in AM (150mg + 75mg) venlafaxine 37.5 mg tablet extended release 24hr 37.5 mg PO QPM Rx Instructions: Total dose 187.5mg in PM (150mg + 37.5mg) cholecalciferol (vitamin D3) 25 mcg (1,000 unit) capsule 2,000 unit PO DAILY conjugated estrogens 0.625 mg/gram cream 0.625 mg vaginal DAILY PRN (Reason: vaginal dryness) Qty: 30 2RF Rx Instructions: use daily for 7d then off 5d, ok to repeat cycle if needed phenytoin [Dilantin Infatabs] 50 mg tablet,chewable 50 mg PO QAM 90 Days Qty: 90 3RF Rx Instructions: Brand Medically Necessary phenobarbital 30 mg tablet 90 mg PO HS Qty: 270 3RF furosemide 20 mg tablet 20 mg PO DAILY Qty: 90 3RF potassium chloride 20 mEq tablet extended release 20 meq PO DAILY Qty: 60 1RF warfarin 4 mg tablet See Rx Instructions PO UD Qty: 90 1RF Rx Instructions: 4mg daily per [facility] orally use as directed; risperidone 1 mg tablet 2 mg PO BID clonazepam 0.5 mg tablet See Rx Instructions PO UD Rx Instructions: 0.25mg qAM, 0.5mg qPM orally use as directed; phenytoin sodium extended [Dilantin Extended] 100 mg capsule 100 mg PO BID Qty: 180 3RF Rx Instructions: Brand Medically Necessary mecobalamin (vitamin B12) 1,500 mcg PO DAILY triamcinolone acetonide 0.1 % cream 1 applic topical BID PRN (Reason: itching) nystatin 100,000 unit/gram powder 1 applic topical BID Qty: 60 0RF Caltrate 600 plus D 600 mg (1,500 mg)-800 unit tablet,chewable 1 tab PO BIDM Referrals Referrals: Davey Gracia DO [Primary Care Provider] -
--- NOTE | 2024-08-21 15:04 | XRay Report ---
Chest radiograph, one view History: Chest pain Comparison: 10/06/2021 Findings: Single AP view of the chest performed. No focal consolidation or pleural effusion. No pneumothorax. The cardiomediastinal silhouette is within normal limits. Normal pulmonary vascularity. No evidence for lymphadenopathy. No visualized bony or soft tissue abnormality. Impression: Normal chest radiograph Electronically signed by Cristofer Hernández 08-21-2024 3:03 PM
[2024-08-21 15:29] LABS: Basophils # (auto) 0.03 K/uL (0.00-0.20); Basophils % (auto) 0.4 %; Eosinophils # (auto) 0.04 K/uL (0.00-0.50); Eosinophils % (auto) 0.6 %; Hematocrit (blood only) 43.7 % (37.0-47.0); Hemoglobin 14.6 g/dl (12.0-16.0); Immature Granulocytes # (auto) 0.02 K/uL (0.01-0.20); Immature Granulocytes % (auto) 0.3 %; Lymphocytes # (auto) 1.37 K/uL (1.20-3.40); Lymphocytes % (auto) 19.4 %; Mean Corpuscular Hemoglobin 30.8 pg (25.0-34.0); Mean Corpuscular Hgb Conc 33.4 g/dL (32.0-36.0); Mean Corpuscular Volume 92.2 fL (80.0-100.0); Monocytes # (auto) 0.71 K/uL (0.11-0.59); Monocytes % (auto) 10.1 %; Neutrophils # (auto) 4.89 K/uL (1.40-6.50); Neutrophils % (auto) 69.2 %; Platelet Count 228 K/uL (130-400); RDW Coefficient of Variation 13.3 % (11.5-14.5); RDW Standard Deviation 45.5 fL (36.4-46.3); Red Blood Count 4.74 M/uL (4.20-5.40); White Blood Count 7.06 K/ul (4.8-10.8)
[2024-08-21 15:49] LABS: Albumin Globulin Ratio 1.2 (0.9-2); Albumin Level 3.8 gm/dl (3.4-5.0); BUN Creatinine Ratio 18.6 (10-20); Bilirubin,Total 0.3 mg/dl (0.2-1.0); Calcium 8.7 mg/dl (8.6-10.3); Creatinine Clr Calc Pharmacy 99.5 ml/min; Globulin 3.1 gm/dl (2.5-4.0); Magnesium 1.9 mg/dl (1.7-2.4); Potassium 4.1 mmol/L (3.5-5.1); Total Protein 6.9 gm/dl (6.0-8.3)
[2024-08-21 15:54] LABS: Troponin I High Sensitivity 6.5 pg/ml (0-14)
[2024-08-21 15:57] LABS: INR 2.3 (0.9-1.1)
--- NOTE | 2024-08-21 16:00 | CT Scan Report ---
CT head without contrast History: Weakness and dizziness Comparison: 05/06/2020 Technique: Using multidetector thin collimation helical acquisition technique, axial, coronal and sagittal CT images from the skull base to the vertex were obtained without intravenous contrast. Dose reduction techniques were achieved by using automatic exposure control and/or adjustment of mA and/or kV according to patient size and/or use of iterative reconstruction technique. Findings: No intracranial hemorrhage, mass-effect, or midline shift. The ventricles are proportionate to the cerebral sulci. Chronic infarct redemonstrated of the right frontal operculum, otherwise the slade to white matter differentiation of the cerebral hemispheres is preserved. The basal cisterns are patent. The visualized paranasal sinuses are clear. Mastoid air cells are clear. Impression: No acute intracranial pathology. Electronically signed by Cristofer Hernández 08-21-2024 4:00 PM
[2024-08-21 16:03] LABS: Thyroid Stimulating Hormone 1.104 uIu/ml (0.300-4.500)
[2024-08-21 17:46] LABS: Adenovirus PCR Not Detected (NotDetected); Bordetella parapertussis PCR Not Detected (NotDetected); Bordetella pertussis PCR Not Detected (NotDetected); Chlamydia pneumoniae PCR Not Detected (NotDetected); Coronavirus 229E PCR Not Detected (NotDetected); Coronavirus CoV-2 (COVID19)PCR Not Detected (NotDetected); Coronavirus HKU1 PCR Not Detected (NotDetected); Coronavirus NL63 PCR Not Detected (NotDetected); Coronavirus OC43PCR Not Detected (NotDetected); Human Metapneumovirus PCR Not Detected (NotDetected); Influenza A PCR Not Detected (NotDetected); Influenza B PCR Not Detected (NotDetected); Mycoplasma pneumoniae PCR Not Detected (NotDetected); Parainfluenza Virus 1 PCR Not Detected (NotDetected); Parainfluenza Virus 2 PCR Not Detected (NotDetected); Parainfluenza Virus 3 PCR Not Detected (NotDetected); Parainfluenza Virus 4 PCR Not Detected (NotDetected); Respiratory Syncytial VirusPCR Not Detected (NotDetected); Rhinovirus/Enterovirus PCR Not Detected (NotDetected)
--- NOTE | 2024-08-21 18:12 | History & Physical Report ---
Date of Service August 21, 2024 Assessment & Plan (1) Vertigo: Plan: Nystagmus on exam No prior history of vertigo Prior history of migraines but none recent and none with this episode No recent URI symptoms to suggest vestibular neuritis Brain MRI to r/o CVA, if positive will need rest of stroke workup ordered, if negative will treat with as needed meclizine Plan VTE Prophylaxis - low risk Diet - regular Disposition - observation to med/tele Admission and Anticipated Discharge Date Admission Date: August 21, 2024 History of Present Illness Chief Complaint: Dizziness Primary Care Provider: Davey Gracia DO Osvaldo West is a 74 year old female who presents to the ER with dizziness. She reports waking up this morning around 8am and went to the bathroom without any issue. At 9am when she got up the room was moving (moving back and forth) and felt very dizzy. This feeling has not let up since. No assoacited nausea. She feels frightened. No speech, vision or hearing changes. No limb weakness or change in sensation. She has no history of vertigo. She has a history of migraines but this was years ago and more recently this has not been an issue. No recent URI symptoms, ear pain or fullness. No urinary symptoms. No fever or chills. Allergies Allergy/AdvReac Type Severity Reaction Status Date / Time codeine AdvReac Severe dizziness, Verified 07/26/24 15:04 upset stomach, fainted Home Medications Medication Instructions Recorded Confirmed Type buspirone 30 mg tablet 30 mg PO BID 05/04/18 08/21/24 History docusate sodium 100 mg capsule 100 mg PO QAM 05/04/18 08/21/24 History calcium 600 mg (as carbonate)-vit 1 tab PO BIDM 04/02/19 08/21/24 History D3 20 mcg (800 unit) chewable tablet (Caltrate plus D) artifi.tears(hypromellose)(PF) 0.3 1 drops ophthalmic (eye) BID PRN 10/19/19 08/21/24 History % eye drops Dry Eye(S) polyethylene glycol 3350 17 gram 17 gm PO DAILY PRN Constipation 02/22/20 08/21/24 History oral powder packet (Miralax) venlafaxine 150 mg 150 mg PO BID 05/29/21 08/21/24 History capsule,extended release 24 hr venlafaxine 37.5 mg 37.5 mg PO QPM 05/29/21 08/21/24 History tablet,extended release 24 hr venlafaxine 75 mg tablet,extended 75 mg PO QAM 05/29/21 08/21/24 History release 24 hr clonazepam 0.5 mg tablet See Rx Instructions PO UD 05/27/22 08/21/24 History acetaminophen 500 mg tablet 500 mg PO Q6H PRN pain 02/24/23 08/21/24 History (Tylenol Extra Strength) triamcinolone acetonide 0.1 % 1 applic topical BID PRN itching 02/27/23 08/21/24 History topical cream Dilantin Extended 100 mg capsule 100 mg PO BID #180 caps 09/30/23 08/21/24 Rx (phenytoin sodium extended) cholecalciferol (vitamin D3) 25 2,000 unit PO DAILY 10/13/23 08/21/24 History mcg (1,000 unit) capsule mecobalamin (vitamin B12) 1,500 mcg PO DAILY 10/13/23 08/21/24 History conjugated estrogens 0.625 mg/gram 0.625 mg vaginal DAILY PRN vaginal 11/03/23 08/21/24 Rx vaginal cream dryness #30 grams Dilantin Infatabs 50 mg chewable 50 mg PO QAM 90 days #90 tabs 11/17/23 08/21/24 Rx tablet (phenytoin) phenobarbital 30 mg tablet 90 mg (3 x 30 mg) PO HS #270 tabs 03/02/24 08/21/24 Rx furosemide 20 mg tablet 20 mg PO DAILY #90 tabs 03/25/24 08/21/24 Rx potassium chloride 20 mEq 20 meq PO DAILY #60 tabs 06/30/24 08/21/24 Rx tablet,extended release warfarin 4 mg tablet See Rx Instructions PO UD #90 tabs 07/26/24 08/21/24 Rx risperidone 1 mg tablet 2 mg PO BID anxiety 08/20/24 08/21/24 History ascorbic acid (vitamin C) 500 mg 500 mg PO DAILY 08/21/24 08/21/24 History tablet (Vitamin C) Past Med/Surg History Problem List (Updated 08/21/24 @ 20:29 by Jp Gordon MD) Vertigo Dizziness (Acute) Generalized weakness (Acute) Morbid obesity B12 deficiency Depression (Chronic) Anxiety (Chronic) Complex partial seizure 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 (Acute) History of pulmonary embolism Chronic anticoagulation (Chronic) GERD (gastroesophageal reflux disease) Vitamin D deficiency (Acute) Osteoporosis (Chronic) Low back pain (Acute) Gait abnormality Debility Chronic venous insufficiency Medical History (Updated 08/21/24 @ 20:29 by Jp Gordon MD) Venous ulcer of left leg Closed fracture of right proximal humerus History of compression fracture of spine History of fracture of rib History of hyperparathyroidism (~2015) Multiple thyroid nodules Lupus anticoagulant disorder Internal hemorrhoids Hearing loss Cyst of kidney, acquired Constipation Benign familial tremor Osteoarthritis Degenerative disc disease Hiatal hernia Glaucoma NO DROPS CURRENTLY. Depression Anxiety Migraine Stroke AN Surgical History H/O tooth extraction History of cataract surgery RT on 09/30/18: was given 2mg of versed and 100mcg of fentanyl without apparent complications History of colonoscopy 02/2016 repeat 10 yrs S/P subtotal parathyroidectomy R/T NODULE History of tonsillectomy H/O parathyroidectomy Hx of tonsillectomy Family History Brother Heart disease Colorectal cancer Mother Congestive heart failure Osteoporosis Depression Gastroesophageal reflux disease Father Hypertension Irritable bowel syndrome Alzheimer disease Unknown Stroke syndrome Denies family history of Ovarian cancer Prostate cancer Breast cancer Lung cancer Social History Smoking Status: Never smoker Second Hand Exposure: No; Do You Dip or Chew Tobacco: No; Tobacco Cessation Education Requested by Patient: No Hx Alcohol Use: No Hx Substance Use: No Preferred Language: Yakut Communication Ability: Effective Visual Impairment: Diminished Hearing Ability: Hard of Hearing 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 current occupational status: retired How many Children do You have: 3 How many Children do You have Comment: All children are local and able to assist as needed with care. Stated eldest daughter has been helping the most so far. Other Information That Helps Us Care for You: No Feels Safe at Home: Yes Safety Concerns: Afraid for Self Childhood Exposure to Second-Hand Smoke: Yes Diet: regular caffeine: Yes Dental Care, Regularly: No Physical Activity Frequency: Does not Exercise Seatbelt Use: always Sunscreen Use: Yes Do you think of yourself as: straight/heterosexual Assistive Devices: Glasses and Walker Review of Systems Review of Systems: All systems reviewed & are unremarkable except as noted in HPI & below Physical Exam Constitutional: WD/WN, vitals as above Eyes: PERRL, EOM intact bilaterally and + nystagmus (right lateral gaze with fast beat to right) Respiratory: normal respiratory effort, lungs clear to auscultation Cardiovascular: Rate/Rhythm: regular rate and regular rhythm Heart Sounds: + murmur (Systolic 4/6 LUSB) Extremities: normal capillary refill and + pedal edema (trace b/l); no calf tenderness Gastrointestinal (Abdomen): normal bowel sounds, soft, nontender, no hepatosplenomegaly Neurologic: moves all extremities and awake; no focal motor deficits and not confused Speech / Cognition: normal speech Motor/Sensory: + tremor (postural R > L); no pronator drift and no sensory deficit Cranial Nerves: PERRL, EOM intact bilaterally, normal facial strength, able to rotate head bilaterally, able to elevate shoulders bilaterally, no nystagmus and symmetric palate elevation Psychiatric: A+Ox3, euthymic affect Results & Data Results & Data Vital Signs (Past 12 Hours) Vital Signs Temp Pulse Pulse Resp BP BP Pulse Ox 08/21/24 18:02 96 H 08/21/24 17:39 87 18 170/86 H 98 08/21/24 16:00 87 18 124/98 94 08/21/24 16:00 94 08/21/24 14:58 88 08/21/24 14:18 90 24 135/106 H 95 08/21/24 14:15 36.7 C 92 H 16 135/106 H 94 O2 Del Method 08/21/24 18:02 08/21/24 17:39 Room Air 08/21/24 16:00 Room Air 08/21/24 16:00 Room Air 08/21/24 14:58 08/21/24 14:18 Room Air 08/21/24 14:15 Room Air Laboratory Results Abnormal lab results 08/21/24 08/21/24 Range/Units 15:09 18:59 [place] # (Auto) 0.71 H (0.11-0.59) K/uL PT 23.0 H (9.0-12.0) Seconds INR 2.3 H (0.9-1.1) Carbon Dioxide 33 H (21-32) mmol/L Creatinine 0.59 L (0.6-1.2) mg/dl Glucose 107 H (70-99(Fasting)) mg/dl Urine pH 8.5 H (4.5-7.5) Ur Leukocyte Esterase Trace H (Negative) Urine RBC (Auto) 3-5 H (0-2) /hpf U Epithel Cells (Auto) 6-10 H (0-2) /hpf Diagnostic Findings Chest radiograph, one view History: Chest pain Comparison: 10/06/2021 Findings: Single AP view of the chest performed. No focal consolidation or pleural effusion. No pneumothorax. The cardiomediastinal silhouette is within normal limits. Normal pulmonary vascularity. No evidence for lymphadenopathy. No visualized bony or soft tissue abnormality. Impression: Normal chest radiograph CT head without contrast History: Weakness and dizziness Comparison: 05/06/2020 Technique: Using multidetector thin collimation helical acquisition technique, axial, coronal and sagittal CT images from the skull base to the vertex were obtained without intravenous contrast. Dose reduction techniques were achieved by using automatic exposure control and/or adjustment of mA and/or kV according to patient size and/or use of iterative reconstruction technique. Findings: No intracranial hemorrhage, mass-effect, or midline shift. The ventricles are proportionate to the cerebral sulci. Chronic infarct redemonstrated of the right frontal operculum, otherwise the slade to white matter differentiation of the cerebral hemispheres is preserved. The basal cisterns are patent. The visualized paranasal sinuses are clear. Mastoid air cells are clear. Impression: No acute intracranial pathology. Medications Administered ER Medications Given: Meclizine 25mg PO ECG Rate (beats per minute): 90 Rhythm: normal sinus Findings: no acute ischemic change Comparison ECG Date: from (September 12, 2017) Change: no significant change Code Status & VTE Plan Code Status Full VTE Prophylaxis Plan VTE Prophylaxis will be ordered: No PG Care Time/CCT Total # of Minutes Spent Total Time Spent with Patient: Total time spent is greater than 50% in coordination of care (as documented) at patient's floor/unit and/or counseling patient: Coding Level of Care Code 70474 INT INP/OBS CARE MIN Diagnoses Vertigo R42
[2024-08-21] MEDS: LORazepam 2 MG/1 ML VIAL IV PRN (19:08)
[2024-08-21] MEDS: MECLIZINE HCL 25 MG TAB PO STA (19:08)
[2024-08-21 19:10] LABS: Appearance Urine Clear (Clear); Bacteria Urine Automated None Seen (None Seen); Bilirubin Urine Negative (Negative); Blood Urine Negative (Negative); Cast Urine Automated 0-2 /lpf (0-2); Color Urine Yellow; Glucose Urine UA Negative (Negative); Ketones Urine Negative (Negative); Leukocyte Esterase Urine Trace (Negative); Nitrite Urine Negative (Negative); Protein Urine Negative (Negative); Specific Gravity Urine 1.013 (1.000-1.030); Urobilinogen Urine Negative (Negative); WBC Urine Automated 0-5 /hpf (0-5); pH Urine 8.5 (4.5-7.5)
[2024-08-21] MEDS: LORazepam 2 MG/1 ML VIAL IV STA (20:58)
[2024-08-21] MEDS ORDERED: PHENobarbitaL 30 MG TAB PO SCH (21:45)
[2024-08-21] MEDS ORDERED: risperiDONE 2 MG TABLET PO SCH (21:45)
[2024-08-21] MEDS ORDERED: ARTIFICIAL TEARS OP PRN (21:55)
--- NOTE | 2024-08-21 22:52 | Magnetic Resonance Report ---
Exam(s): MRI HEAD Without Contrast EXAM: MR Head Without Intravenous Contrast CLINICAL HISTORY: Reason for exam: New onset vertigo. TECHNIQUE: Magnetic resonance images of the head/brain without intravenous contrast in multiple planes. COMPARISON: CT head 08/21/24 FINDINGS: Brain: Encephalomalacia involving the right insula and right frontal/parietal opercular regions consistent with chronic right MCA territory infarct. Associated wallerian degeneration right cerebral peduncle. Age-related parenchymal volume loss. Periventricular and deep cerebral white matter foci of FLAIR signal hyperintensity in keeping with chronic small vessel ischemic change. No acute intracranial hemorrhage or abnormal extra-axial fluid collection. No diffusion restriction to suggest acute cerebral ischemia. Ventricles: Unremarkable. No hydrocephalus. Bones/joints: Unremarkable. No acute fracture. Sinuses: Unremarkable as visualized. Mastoid air cells: Unremarkable as visualized. No mastoid effusion. Orbits: Lens replacements. IMPRESSION: No acute findings in the head/brain. Electronically signed by: Meme Duncan M.D. 08/21/24 22:51 PM
[2024-08-21] MEDS: PHENYTOIN SODIUM ER 100 MG CAP PO SCH (22:53)
[2024-08-21] MEDS: busPIRone 15 MG TAB PO SCH (22:53)
[2024-08-21] MEDS: WARFARIN SOD 4 MG TAB PO SCH (22:53)
[2024-08-21] MEDS: VENLAFAXINE HCL XR 150 MG CAPXR PO SCH (22:54)
[2024-08-21] MEDS: VENLAFAXINE HCL XR 37.5 MG CAPXR PO SCH (22:54)
[2024-08-21] MEDS: clonazePAM 0.5 MG TAB PO SCH (22:54)
[2024-08-22] MEDS: PHENobarbitaL 30 MG TAB PO SCH (00:40)
[2024-08-22] MEDS: risperiDONE 2 MG TABLET PO SCH (00:41)
[2024-08-22] MEDS ORDERED: MECLIZINE HCL 25 MG TAB PO PRN (06:29)
[2024-08-22] MEDS: MECLIZINE 12.5 MG TAB PO SCH (08:54)
[2024-08-22] MEDS: ACETAMINOPHEN 500 MG TAB PO PRN (08:55)
[2024-08-22] MEDS: DOCUSATE SODIUM 100 MG CAP PO SCH (08:55)
[2024-08-22] MEDS: POTASSIUM CHLORIDE CRTAB 20 MEQ TABCR PO SCH (08:56)
[2024-08-22] MEDS: VENLAFAXINE HCL XR 75 MG CAPXR PO SCH (08:58)
[2024-08-22] MEDS: FUROSEMIDE 20 MG TAB PO SCH (08:59)
[2024-08-22] MEDS ORDERED: PHENYTOIN 50 MG CHEW PO SCH (09:00)
[2024-08-22] MEDS: clonazePAM 0.25 MG OD TAB PO SCH (09:04)
[2024-08-22] MEDS: PHENYTOIN SUSP 125 MG/5 ML PO SCH (10:40)
--- NOTE | 2024-08-22 11:40 | Hospitalist Progress Note ---
Date of Service August 22, 2024 Assessment & Plan (1) Vertigo: Plan: Nystagmus on exam. This appears to be due to acute labyrinthitis. Fortunately, the brain MRI scan is negative for acute CVA. Will schedule meclizine therapy along with parenteral steroid therapy. (2) History of Coumadin therapy: Plan: She takes Coumadin for her history of DVT. Current INR is 2.3 (3) Seizure disorder: Plan: Stable. Continue current medical management Plan Anticipate eventual discharge to home when vertigo improves or resolves. Admission and Anticipated Discharge Date Admission Date: August 21, 2024 Subjective Alert and oriented. is at the bedside. Fortunately the brain MRI scan is negative for acute CVA. That this appears to be vertigo due to acute labyrinthitis. She is now on scheduled meclizine and parenteral steroid therapy will be started. Review of Systems 2 Review of Systems: Constitutionalno fever or chills ENTno blurred vision, no double vision, no epistaxis, no sore throat Respiratoryno cough, no wheezing, no shortness of breath Cardiacno palpitations, no chest pain, no syncope Annalee nausea, vomiting, diarrhea, melena, hematochezia GUno urinary retention, no urinary incontinence, no dysuria, no hematuria Musculoskeletalno joint pain, no muscle tenderness Skinno bruising, no rashes, no pruritus Neurono isolated weakness, no paresthesia. She does have vertigo with head movement Psychno depression, no anxiety Physical Exam 2 Physical Exam: General-alert and oriented x3, no fever, no chills HEENT-head atraumatic and normocephalic, pupils equal and reactive to light, extraocular muscles intact Neck-no lymphadenopathy or thyromegaly, trachea midline Chest-clear to auscultation. No rales, wheezing or rhonchi Cardiac-regular rate and rhythm, normal S1 and S2 Abdomen-normal bowel sounds, no hepatosplenomegaly Extremities-no cyanosis, clubbing, or edema Neuro-cranial nerves II through XII intact, motor and sensory function within normal limits, strength symmetrical, no focal deficits Psych-normal affect, normal mood Results & Data Results & Data Vital Signs (Past 12 Hours) Vital Signs Temp Pulse Resp BP BP Pulse Ox O2 Del Method 08/22/24 11:12 36.9 C 87 18 107/59 L 92 Nasal Cannula 08/22/24 07:08 37.1 C 100 H 18 102/64 95 Nasal Cannula 08/22/24 03:00 37.2 C 90 18 123/73 95 Nasal Cannula O2 Flow Rate 08/22/24 11:12 2.0 08/22/24 07:08 2.0 08/22/24 03:00 2 Laboratory Results 08/21/24 15:09 08/21/24 15:09 PG Care Time/CCT Total # of Minutes Spent Total Time Spent with Patient: Total time spent is greater than 50% in coordination of care (as documented) at patient's floor/unit and/or counseling patient: Coding Level of Care Code 35838 SUB INP/OBS CARE 3/50MIN Diagnoses Vertigo R42 History of Coumadin therapy Z92.29 Seizure disorder G40.909
[2024-08-22] MEDS ORDERED: methylPREDNISolone 10 mg/mL (For Ped Dose < 7mg) IV SCH (13:00)
[2024-08-22] MEDS: methylPREDNISolone 40 MG in SYRINGE 0 ML IV SCH (15:08)
--- NOTE | 2024-08-23 06:05 | Electrocardiogram Report ---
Test Reason : Blood Pressure : */* mmHG Vent. Rate : 90 BPM Atrial Rate : 90 BPM P-R Int : 184 ms QRS Dur : 72 ms QT Int : 358 ms P-R-T Axes : 36 51 25 degrees QTcB Int : 437 ms Normal sinus rhythm Low voltage QRS Borderline ECG When compared with ECG of 12-Sep-2017 13:07, No significant change was found Confirmed by Keon Barrios ([id number]) on 08/23/2024 6:04:26 AM Referred By: REFERRED SELF Confirmed By: Keon Barrios
[2024-08-23 10:39] LABS: INR 2.5 (0.9-1.1); Prothrombin Time 24.8 Seconds (9.0-12.0)
--- NOTE | 2024-08-23 11:15 | Hospitalist Progress Note ---
Date of Service August 23, 2024 Assessment & Plan (1) Vertigo: Plan: Brain MRI scan is negative for acute CVA. con't meclizine PT evaluation (2) History of Coumadin therapy: Plan: Coumadin for her history of DVT. Current INR is 2.5 (3) Seizure disorder: Plan: Stable. Continue current medical management Plan Pt still with vertigo symptoms, discharge home once resolved. Admission and Anticipated Discharge Date Admission Date: August 21, 2024 Subjective Pt still feeling symptoms of vertigo. Review of Systems Review of Systems: CONST: Negative for fever, body aches and chills. HENT: Negative for neck pain/stiffness, headache, congestion, sore throat, swelling. EYES: Negative for discharge/pain or vision changes. RESP: Negative for cough/hemoptysis and shortness of breath. CV: Negative chest pain, difficulty breathing, palpitations. ABD: Negative pain, nausea, vomiting. : Negative increase frequency, dysuria, blood in urine or stool. MUSC: Negative for muscle aches, edema. SKIN: Negative rash, lesions/sores. NEURO: Negative headache, dizziness, weakness. Physical Exam Physical Exam: GENERAL APPEARANCE NAD, activity normal for age, well developed/ well nourished, no cyanosis, pallor, or diaphoresis. EYES lids/conjunctiva normal. EARS/NOSE/THROAT Mucous membranes moist, nares normal, lips/teeth normal uvula midline without oral pharyngeal erythema, exudate or swelling TMs normal bilaterally. No lymphangitis/lymphedema. HEAD/NECK normocephalic atraumatic, no facial trauma, neck is supple. RESPIRATORY respiratory effort normal, speaks in full sentences, no tripod position, no accessory muscle use. Lungs clear to auscultation without rhonchi, wheezes, rales CARDIAC Regular rate and rhythm, no edema. ABDOMINAL Soft, ND/NT. No evidence of fluid wave. No pulsatile masses on exam, rebound tenderness, Posadas sign or pain over Mcburney's point. MUSCLES/EXTREMITIES No abnormal range of motion, no swelling. SKIN Warm, pink and dry. No rashes, dermatoses, petechiae or lesions. NEUROLOGICAL Speech is clear and appropriate. Normal level of consciousness. Gait and coordination are normal. 5/5 strength in all extremities. PSYCH Normal mood and affect. Judgement/competence is appropriate Results & Data Results & Data Vital Signs (Past 12 Hours) Vital Signs Temp Pulse Resp BP Pulse Ox O2 Del Method 08/23/24 10:53 36.9 C 90 19 132/76 92 Room Air 08/23/24 08:15 36.8 C 93 H 20 132/73 92 Room Air 08/23/24 04:27 36.6 C 78 18 122/84 92 Room Air 08/22/24 23:16 36.4 C L 85 16 110/65 96 Room Air PG Care Time/CCT Total # of Minutes Spent Total Time Spent with Patient: Total time spent is greater than 50% in coordination of care (as documented) at patient's floor/unit and/or counseling patient: Coding Level of Care Code 96541 SUB INP/OBS CARE 2/35MIN Diagnoses Vertigo R42 History of Coumadin therapy Z92.29 Seizure disorder G40.909
[2024-08-23] MEDS: PHENYTOIN 50 MG CHEW PO ONE (11:28)
[2024-08-23 17:25] LABS: C Reactive Protein 1.27 mg/dl (0-0.5)
[2024-08-24 07:19] LABS: INR 2.6 (0.9-1.1); Prothrombin Time 26.2 Seconds (9.0-12.0)
[2024-08-24] MEDS: PHENYTOIN 50 MG CHEW PO SCH (08:48)
--- NOTE | 2024-08-24 09:11 | Neurology Consultation ---
Date of Consultation August 24, 2024 Assessment & Plan (1) Seizure disorder: (2) Vertigo: (3) Leg weakness: (4) Idiopathic peripheral neuropathy: (5) Benign familial tremor: (6) Low back pain: (7) Gait abnormality: Plan Patient has a history of complex partial seizure disorder well-controlled for over 20 years on phenytoin and phenobarbital. She has been reluctant to change these over the decades despite the fact that she has not had any seizures. Patient had acute onset vertigo, likely inner ear in origin. It is improved today compared to admission. She does not localize clinically to 1 particular ear and MRI of the brain was unremarkable. There is no evidence of stroke or other acute problem. Patient has proximal lower extremity weakness bilaterally and symmetrically. This is accompanied by some low back pain and obvious peripheral neuropathy on examination. The etiology of the neuropathy is not readily apparent but longstanding Dilantin use can give neuropathy, resulting in sensory ataxia (as well as cognitive problems and other issues). The patient has a history of essential tremor which is stable She has longstanding significant anxiety and depressive disorder followed closely by psychiatry on multiple medications. Her psychiatric medications can create neurologic issues including gait disturbance as well. There is no obvious parkinsonism (that might be coming from Risperdal). Her psychiatric medications may be adding to her tremor but she is not bothered by this, at this time Recommendations: 1. Check vitamin D level 2. Check trough Dilantin and phenobarbital levels 3. MRI of the lumbar spine to evaluate for spinal stenosis which could cause radiculopathy. 4. EMG and nerve conduction studies of the lower extremities, but this has to be done as an outpatient 5. Physical therapy for evaluation and treatment of leg strength and gait training 6. The patient may benefit from a rehab hospital stay to help with strengthening and gait training. 7. Defer all psychiatric medication changes to Dr. Sanchez. 8. As an outpatient, I will try to wean off of Dilantin 9. Follow-up in neurology with PA, 2 to 3 weeks after discharge. Also schedule the EMG as an outpatient Overall, I spent a total of 100 minutes with this case including review of records, review of MRI films, direct evaluation the patient at bedside, report generation, and discussion of the case with the patient and RN at bedside, and Dr. Connors, including differential diagnosis and treatment options. History of Present Illness Reason for Consultation: Patient is a 74-year-old, who was asked to see at the request of Dr. Connors, for neurologic evaluation regarding leg weakness and other issues Requesting Physician: Dr. Connors Attending Physician: Reyes Connors MD History of Present Illness I have followed this patient in neurology clinic for at least 20 years. She was seen for complex partial seizures which started age 15. They occurred intermittently and she ended up being controlled on phenobarbital and Dilantin. I kept these medications over the years only because the patient was not interested in switching or changing as she has been seizure-free for at least 20 years. I do not have access to the paper charts when I first started seeing her. I last saw her in clinic September 30, 2023. Currently she takes Dilantin 150 mg in the morning and 100 mg in the evening. She also takes phenobarbital 90 mg at bedtime. Patient has a longstanding history of anxiety and depression and she is followed by Dr. Sanchez, psychiatry. Currently she is on venlafaxine 225 mg in the morning and 187.5 mg in the evening. She also takes clonazepam 0.5 mg in the morning and 1 mg at night, buspirone 30 mg twice a day, and Risperdal 2 mg twice a day. She states that her mood has been "okay" and seems stable. The patient has a history of essential tremor. She cannot remember anybody in the who had tremor however. This has been stable. She has a history of fatigue and vitamin D deficiency adequately replaced (with most recent vitamin D level 62.9 in January 2024). Patient tells me she has had tinnitus bilaterally for years. She has no ear pain and she does not think she has hearing loss. She denies vision or thinking problems. Over the last year she has used a walker because of falling. She just loses her balance. She has some lumbar and cervical spine pain chronically and has known osteoarthritis. She has had incontinence of urine for the last 10 to 15 years. She denies pain or numbness chronically in her legs and feet. She has been walking with a walker for the last. Patient was in her usual state of health when at 0900 on August 21 she had acute onset of vertigo. It was a spinning sensation and constant. It occurred with moving the head in any direction. When she was standing it seemed to pull her "backwards". She also noticed some worse balance and some weakness proximally in her legs. She arrived to the emergency room August 21 at 1415, with a temperature of 36.7, pulse 92 and regular, respiratory rate 16, blood pressure 135/106, and O2 saturation 94%. Physical examination in the emergency room showed no focal findings and it was specifically mentioned that motor strength is 5/5 diffusely in the arms and legs. CBC was unremarkable as well as CHEM profile and liver profile. Urinalysis was unremarkable and TSH was 1.1. CT scan of the head was unremarkable. MRI of the brain showed mild generalized atrophy and mild old small vessel ischemic disease. There were no acute findings and no acute stroke. Posterior fossa had no abnormalities. I reviewed these films. Currently, the patient is very concerned that her proximal legs are weak and that she cannot walk. Laboratory studies yesterday revealed a sed rate of 27, CK of 42, CRP of 1.27, B12 of 769, and antibody titers. She has been in normal sinus rhythm in the 70s. She denies pain or headaches. Allergies Allergy/AdvReac Type Severity Reaction Status Date / Time codeine AdvReac Severe dizziness, Verified 07/26/24 15:04 upset stomach, fainted Home Medications Medication Instructions Recorded Confirmed Type buspirone 30 mg tablet 30 mg PO BID 05/04/18 08/21/24 History docusate sodium 100 mg capsule 100 mg PO QAM 05/04/18 08/21/24 History calcium 600 mg (as carbonate)-vit 1 tab PO BIDM 04/02/19 08/21/24 History D3 20 mcg (800 unit) chewable tablet (Caltrate plus D) artifi.tears(hypromellose)(PF) 0.3 1 drops ophthalmic (eye) BID PRN 10/19/19 08/21/24 History % eye drops Dry Eye(S) polyethylene glycol 3350 17 gram 17 gm PO DAILY PRN Constipation 02/22/20 08/21/24 History oral powder packet (Miralax) venlafaxine 150 mg 150 mg PO BID 05/29/21 08/21/24 History capsule,extended release 24 hr venlafaxine 37.5 mg 37.5 mg PO QPM 05/29/21 08/21/24 History tablet,extended release 24 hr venlafaxine 75 mg tablet,extended 75 mg PO QAM 05/29/21 08/21/24 History release 24 hr clonazepam 0.5 mg tablet See Rx Instructions PO UD 05/27/22 08/21/24 History acetaminophen 500 mg tablet 500 mg PO Q6H PRN pain 02/24/23 08/21/24 History (Tylenol Extra Strength) triamcinolone acetonide 0.1 % 1 applic topical BID PRN itching 02/27/23 08/21/24 History topical cream Dilantin Extended 100 mg capsule 100 mg PO BID #180 caps 09/30/23 08/21/24 Rx (phenytoin sodium extended) cholecalciferol (vitamin D3) 25 2,000 unit PO DAILY 10/13/23 08/21/24 History mcg (1,000 unit) capsule mecobalamin (vitamin B12) 1,500 mcg PO DAILY 10/13/23 08/21/24 History conjugated estrogens 0.625 mg/gram 0.625 mg vaginal DAILY PRN vaginal 11/03/23 08/21/24 Rx vaginal cream dryness #30 grams Dilantin Infatabs 50 mg chewable 50 mg PO QAM 90 days #90 tabs 11/17/23 08/21/24 Rx tablet (phenytoin) phenobarbital 30 mg tablet 90 mg (3 x 30 mg) PO HS #270 tabs 03/02/24 08/21/24 Rx furosemide 20 mg tablet 20 mg PO DAILY #90 tabs 03/25/24 08/21/24 Rx potassium chloride 20 mEq 20 meq PO DAILY #60 tabs 06/30/24 08/21/24 Rx tablet,extended release warfarin 4 mg tablet See Rx Instructions PO UD #90 tabs 07/26/24 08/21/24 Rx risperidone 1 mg tablet 2 mg PO BID anxiety 08/20/24 08/21/24 History ascorbic acid (vitamin C) 500 mg 500 mg PO DAILY 08/21/24 08/21/24 History tablet (Vitamin C) Patient History Medical History Venous ulcer of left leg Closed fracture of right proximal humerus History of compression fracture of spine History of fracture of rib History of hyperparathyroidism (~2015) Multiple thyroid nodules Lupus anticoagulant disorder Internal hemorrhoids Hearing loss Cyst of kidney, acquired Constipation Benign familial tremor Osteoarthritis Degenerative disc disease Hiatal hernia Glaucoma NO DROPS CURRENTLY. Depression Anxiety Migraine Stroke AN INFANT Surgical History H/O tooth extraction History of cataract surgery RT on 09/30/18: was given 2mg of versed and 100mcg of fentanyl without apparent complications History of colonoscopy 02/2016 repeat 10 yrs S/P subtotal parathyroidectomy R/T NODULE History of tonsillectomy H/O parathyroidectomy Hx of tonsillectomy Family History Brother Heart disease Colorectal cancer Mother Congestive heart failure Osteoporosis Depression Gastroesophageal reflux disease Father Hypertension Irritable bowel syndrome Alzheimer disease Unknown Stroke syndrome Denies family history of Ovarian cancer Prostate cancer Breast cancer Lung cancer Social History Smoking Status: Never smoker Second Hand Exposure: No; Do You Dip or Chew Tobacco: No; Tobacco Cessation Education Requested by Patient: No Hx Alcohol Use: No Hx Substance Use: No Preferred Language: Swiss Communication Ability: Effective Visual Impairment: Diminished Hearing Ability: Hard of Hearing Reproductive Endocrinologist Required: No Beliefs That Will Affect Care: None marital status: Current Living Situation: Spouse Current Living Situation Comment: Spouse and son live in same home as patient. current occupational status: retired How many Children do You have: 3 How many Children do You have Comment: All children are local and able to assist as needed with care. Stated eldest daughter has been helping the most so far. Other Information That Helps Us Care for You: No Feels Safe at Home: Yes Safety Concerns: Afraid for Self Childhood Exposure to Second-Hand Smoke: Yes Diet: regular caffeine: Yes Dental Care, Regularly: No Physical Activity Frequency: Does not Exercise Seatbelt Use: always Sunscreen Use: Yes Do you think of yourself as: straight/heterosexual Assistive Devices: Lift Chair and Walker Review of Systems Constitutional: + fatigue and + weakness; no fever Eyes: no diplopia, no eye pain and no worsening vision Ear, Nose, Mouth, Throat: + dizziness; no ear pain, no tinnitus, n o hearing loss, no snoring, no hoarseness and no dysphagia Respiratory: no cough and no dyspnea Cardiovascular: no chest pain, no palpitations and no lightheadedness Gastrointestinal: no abdominal pain, no nausea and no vomiting Genitourinary: no dysuria, no urinary frequency and no urinary incontinence Musculoskeletal: + back pain and + neck pain; no radicula r pain, no joint pain and no myalgia Integumentary: no rash and no lesions Neurologic: + gait abnormality and + localized weakn ess; no generalized weakness, no tingling, no numbness, no tremor(s), no abnormal movements, no headache(s), no abnormal speech, no confusion and no memory loss Psychiatric: + depression and + anxiety; no irritabil ity, no difficulty concentrating, no confusion and no hallucinations Endocrine: no fatigue and no flushing Hematologic / Lymphatic: no easy bleeding and no easy bruising Allergy / Immunological: no urticaria and no problem reported Exam (Neuro) Physical Exam: The patient is right-handed. The patient is awake, alert, and attentive. Speech is normal without any aphasia or dysarthria. Occasionally she has some slight voice tremor and head tremor but this is intermittent. Mentation and thought processes are intact, with full orientation and normal fund of knowledge. Mood and affect are normal and appropriate. Appearance and grooming are normal. Her memory both long and short do not seem to be as good as they should with conversation. Pupils are 4 mm bilaterally and reactive to light. Extraocular eye muscles are intact without nystagmus. Visual acuity and visual goyal seem normal grossly to confrontation. When she moves her head in any direction she gets some woozy feelings (movement sensation without actual spinning or whirling). I do not note nystagmus with this. There are no deficits to sensation in the face in all 3 distributions of the fifth cranial nerve bilaterally. Corneal reflexes are positive bilaterally. Facial strength and symmetry was normal bilaterally. Hearing seems intact g rossly to voice and finger rub bilaterally. Palate moves well without asymmetry. There is normal sternocleidomastoid and trapezius strength bilaterally. Tongue is midline with good strength bilaterally. Neck has a full range of motion without discomfort. There are no cervical bruits bilaterally. There are no cranial or ocular bruits. Heart is without murmur. There is a regular rhythm and rate. Cervical, thoracic, and lumbar spine are nontender to palpation. Gait was not tested and stance sitting up in bed is reasonable. With outstretched arms there is no drift. There are no resting tremors. Patient has mild to moderate action tremor bilaterally. There is no ataxia with finger to nose testing. There is good facility in the hands. No other abnormal involuntary movements are noted. Motor strength is 5/5 diffusely in the arms bilaterally including deltoids, biceps, triceps, brachioradialis, wrist flexors and extensors, director of primary, and intrinsic hand muscles. Motor strength is 5/5 diffusely in the legs bilaterally including hamstrings, gastrocnemius, tibialis anterior, tibialis posterior, and Peroneii muscles bilaterally. Hip flexors and quadriceps seemed 4/5 although with some enc ouragement I am not certain she has any actual weakness. She seems to have giveaway weakness without pain. Toe extensors are normal and there is good bulk in the extensor digitorum brevis muscles bilaterally. The limbs have good tone without rigidity or spasticity. There is no atrophy noted in the muscles. Muscle bulk is normal, there is no tenderness to palpation, no myotonia to percussion, and no fasciculations seen. Sensory examination reveals decreased sensation to pin and touch in a stocking distribution to the knees bilaterally. Hands seem spared Reflexes are 2/4 in the biceps, triceps, and brachioradialis tendons bilaterally. Quadriceps and Achilles tendon reflexes are absent bilaterally Toes are downgoing with plantar stimulation on the right and neutral on the left. Peripheral pulses are present and of normal quality distally in all 4 limbs. There is no peripheral edema noted in the limbs. Results & Data Vital Signs (Past 12 Hours) Vital Signs Temp Pulse Pulse Resp BP Pulse Ox O2 Del Method 08/24/24 07:49 76 08/24/24 07:20 36.4 C L 84 17 130/76 94 Room Air 08/24/24 07:19 Room Air 08/24/24 03:03 36.6 C 81 16 119/73 90 Room Air 08/24/24 01:36 87 08/23/24 22:25 36.9 C 90 16 138/78 90 Room Air PG Care Time/CCT Total # of Minutes Spent Total Time Spent with Patient: Total time spent is greater than 50% in coordination of care (as documented) at patient's floor/unit and/or counseling patient: Coding Level of Care Code 21994 INT INP/OBS CARE 3/75MIN Diagnoses Seizure disorder G40.909 Vertigo R42 Leg weakness R29.898 Idiopathic peripheral neuropathy G60.9 Benign familial tremor G25.0 Low back pain M54.5 Gait abnormality R26.9 Time Spent (min) 100
--- NOTE | 2024-08-24 10:38 | Hospitalist Progress Note ---
Date of Service August 24, 2024 Assessment & Plan (1) Vertigo: Plan: Brain MRI scan is negative for acute CVA. con't meclizine Neurology consult appreciated Pt with complaints of LE weakness MRI L spine ordered F/U dilantin levels PT evaluation, pt may benefit from rehab placement (2) History of Coumadin therapy: Plan: Coumadin for her history of DVT. Current INR is 2.6 (3) Seizure disorder: Plan: Stable. Continue current medical management Plan Changed to inpatient, awaiting neurology work up for LE weakness and PT evaluation for d/c planning. Admission and Anticipated Discharge Date Admission Date: August 21, 2024 Subjective Pt still having LE weakness, vertigo has improved. Review of Systems Review of Systems: CONST: Negative for fever, body aches and chills. HENT: Negative for neck pain/stiffness, headache, congestion, sore throat, swelling. EYES: Negative for discharge/pain or vision changes. RESP: Negative for cough/hemoptysis and shortness of breath. CV: Negative chest pain, difficulty breathing, palpitations. ABD: Negative pain, nausea, vomiting. : Negative increase frequency, dysuria, blood in urine or stool. MUSC: Negative for muscle aches, edema. SKIN: Negative rash, lesions/sores. NEURO: Negative headache, dizziness, weakness. Physical Exam Physical Exam: GENERAL APPEARANCE NAD, activity normal for age, well developed/ well nourished, no cyanosis, pallor, or diaphoresis. EYES lids/conjunctiva normal. EARS/NOSE/THROAT Mucous membranes moist, nares normal, lips/teeth normal uvula midline without oral pharyngeal erythema, exudate or swelling TMs normal bilaterally. No lymphangitis/lymphedema. HEAD/NECK normocephalic atraumatic, no facial trauma, neck is supple. RESPIRATORY respiratory effort normal, speaks in full sentences, no tripod position, no accessory muscle use. Lungs clear to auscultation without rhonchi, wheezes, rales CARDIAC Regular rate and rhythm, no edema. ABDOMINAL Soft, ND/NT. No evidence of fluid wave. No pulsatile masses on exam, rebound tenderness, Posadas sign or pain over Mcburney's point. MUSCLES/EXTREMITIES No abnormal range of motion, no swelling. SKIN Warm, pink and dry. No rashes, dermatoses, petechiae or lesions. NEUROLOGICAL Speech is clear and appropriate. Normal level of consciousness. Gait and coordination are normal. 5/5 strength in all extremities. PSYCH Normal mood and affect. Judgement/competence is appropriate Results & Data Results & Data Vital Signs (Past 12 Hours) Vital Signs Temp Pulse Pulse Resp BP BP Pulse Ox 08/24/24 10:26 36.9 C 78 17 124/77 93 08/24/24 07:49 76 08/24/24 07:20 36.4 C L 84 17 130/76 94 08/24/24 07:19 08/24/24 03:03 36.6 C 81 16 119/73 90 08/24/24 01:36 87 O2 Del Method 08/24/24 10:26 Room Air 08/24/24 07:49 08/24/24 07:20 Room Air 08/24/24 07:19 Room Air 08/24/24 03:03 Room Air 08/24/24 01:36 PG Care Time/CCT Total # of Minutes Spent Total Time Spent with Patient: Total time spent is greater than 50% in coordination of care (as documented) at patient's floor/unit and/or counseling patient: Coding Level of Care Code 69316 SUB INP/OBS CARE 2/35MIN Diagnoses Vertigo R42 History of Coumadin therapy Z92.29 Seizure disorder G40.909
[2024-08-24] MEDS: LORazepam 2 MG/1 ML VIAL IV PRN (11:30)
--- NOTE | 2024-08-24 12:43 | Magnetic Resonance Report ---
MRI OF THE LUMBAR SPINE WITHOUT CONTRAST CLINICAL HISTORY: Low back pain. Bilateral lower extremity weakness. COMPARISON STUDY: Lumbar spine radiographs February 27, 2023. Lumbar spine CT May 20, 2017. TECHNIQUE: Utilizing a 1.5 Bren magnet and dedicated coil, multiplanar, multiecho imaging of the [facility] spine was performed without IV contrast. FINDINGS: For purposes of numbering on this exam, the L5-S1 disc space is assigned to axial image 33 of 36. Sev eral fibroids measure up to 4 cm. Multiple T2 hyperintense left renal lesions are incompletely imaged on this exam but favor cysts. An old moderate L1 compression fracture is unchanged since prior radio graphs and CT. No acute lumbar spine fractures are present. There are no suspicious marrow replacemen t. There is no intracanalicular mass or fluid collection. Paravertebral soft tissues are unremarkable . T12-L1: Mild retropulsion at the superior endplate of L1 results in mild central canal stenosis. Neur al foramen are patent. L1-2: Is minimal disc bulge and facet arthrosis. The central canal and neural foramen are patent. L2-3: There is moderate facet arthrosis with ligamentous hypertrophy. Minimal disc bulge. Central can al and neural foramen are patent. L3-4: There is disc bulge with moderate facet arthrosis and ligamentous hypertrophy. Findings result in moderate central canal stenosis. Patent AP diameter of the canal is 6.4 mm. There is moderate bila teral neural foraminal stenosis. L4-5: There is severe facet arthrosis with ligamentous hypertrophy. Minimal disc bulge. There is mild narrowing of the central canal. Neural foramen are patent. L5-S1: There is severe facet arthrosis. The central canal and neural foramen are patent. IMPRESSION: 1. Mild to moderate degenerative disc disease and severe facet arthrosis within the lumbar spine. 2. Moderate central canal narrowing at L3-L4. No severe central canal stenosis. 3. Old L1 compression fracture. No acute lumbar spine fractures. 4. Mild to moderate multilevel neural foraminal stenosis, as detailed above. ACT 112: Negative or not required by law. Electronically signed by: Jay Herbert M.D. 08/24/2024 12:41 PM
[2024-08-25 07:24] LABS: INR 2.4 (0.9-1.1)
--- NOTE | 2024-08-25 10:57 | Hospitalist Progress Note ---
Date of Service August 25, 2024 Assessment & Plan (1) Vertigo: Plan: Brain MRI scan is negative for acute CVA. 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 Current INR is 2.4 (3) Seizure disorder: Plan: Stable. Continue current medical management Plan Changed to inpatient, awaiting neurology work up for LE weakness and PT evaluation for d/c planning. Admission and Anticipated Discharge Date Admission Date: August 24, 2024 Subjective Pt still having LE weakness, but is out of bed in chair. Review of Systems Review of Systems: CONST: Negative for fever, body aches and chills. HENT: Negative for neck pain/stiffness, headache, congestion, sore throat, swelling. EYES: Negative for discharge/pain or vision changes. RESP: Negative for cough/hemoptysis and shortness of breath. CV: Negative chest pain, difficulty breathing, palpitations. ABD: Negative pain, nausea, vomiting. : Negative increase frequency, dysuria, blood in urine or stool. MUSC: Negative for muscle aches, edema. SKIN: Negative rash, lesions/sores. NEURO: Negative headache, dizziness, weakness. Physical Exam Physical Exam: GENERAL APPEARANCE NAD, activity normal for age, well developed/ well nourished, no cyanosis, pallor, or diaphoresis. EYES lids/conjunctiva normal. EARS/NOSE/THROAT Mucous membranes moist, nares normal, lips/teeth normal uvula midline without oral pharyngeal erythema, exudate or swelling TMs normal bilaterally. No lymphangitis/lymphedema. HEAD/NECK normocephalic atraumatic, no facial trauma, neck is supple. RESPIRATORY respiratory effort normal, speaks in full sentences, no tripod position, no accessory muscle use. Lungs clear to auscultation without rhonchi, wheezes, rales CARDIAC Regular rate and rhythm, no edema. ABDOMINAL Soft, ND/NT. No evidence of fluid wave. No pulsatile masses on exam, rebound tenderness, Posadas sign or pain over Mcburney's point. MUSCLES/EXTREMITIES No abnormal range of motion, no swelling. SKIN Warm, pink and dry. No rashes, dermatoses, petechiae or lesions. NEUROLOGICAL Speech is clear and appropriate. Normal level of consciousness. Gait and coordination are normal. 5/5 strength in all extremities. PSYCH Normal mood and affect. Judgement/competence is appropriate Results & Data Results & Data Vital Signs (Past 12 Hours) Vital Signs Temp Pulse Pulse Resp BP BP Pulse Ox 08/25/24 10:38 36.5 C 83 17 146/82 H 93 08/25/24 07:11 08/25/24 03:12 36.8 C 81 16 131/81 92 08/24/24 23:25 36.7 C 80 18 140/80 94 08/24/24 22:59 84 O2 Del Method 08/25/24 10:38 Room Air 08/25/24 07:11 Room Air 08/25/24 03:12 Room Air 08/24/24 23:25 Room Air 08/24/24 22:59 PG Care Time/CCT Total # of Minutes Spent Total Time Spent with Patient: Total time spent is greater than 50% in coordination of care (as documented) at patient's floor/unit and/or counseling patient: Coding Level of Care Code 02194 SUB INP/OBS CARE 2/35MIN Diagnoses Vertigo R42 History of Coumadin therapy Z92.29 Seizure disorder G40.909
--- NOTE | 2024-08-25 12:02 | Neurology Progress Note ---
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 She has been reluctant to change these over the decades despite the fact that she has not had any seizures. Patient had acute onset vertigo, likely inner ear in origin. It is improved today compared to admission. She does not localize clinically to 1 particular ear and MRI of the brain was unremarkable. There is no evidence of stroke or other acute problem. Patient has proximal lower extremity weakness bilaterally and symmetrically. This is accompanied by some low back pain and obvious peripheral neuropathy on examination. The etiology of the neuropathy is not readily apparent but longstanding Dilantin use can give neuropathy, resulting in sensory ataxia (as well as cognitive problems and other issues). The patient has a history of essential tremor which is stable She has longstanding significant anxiety and depressive disorder followed closely by psychiatry on multiple medications. Her psychiatric medications can create neurologic issues including gait disturbance as well. There is no obvious parkinsonism (that might be coming from Risperdal). Her psychiatric medications may be adding to her tremor but she is not bothered by this, at this time Recommendations: 1. Check vitamin D level, and trough phenobarbital level. These can be done as an outpatient 2. EMG and nerve conduction studies of the lower extremities, but this has to be scheduled as an outpatient 3. Continue physical therapy for evaluation and treatment of leg strength and gait training 4. The patient should benefit from a rehab hospital stay to help with strengthening and gait training. 5. Defer all psychiatric medication changes to Dr. Sanchez. 6. As an outpatient, I will address anticonvulsant dosages. 7. Follow-up in neurology with PA, 2 to 3 weeks after discharge. Also schedule the EMG as an outpatient Overall, I spent a total of 25 minutes with this case including review of records, review of MRI films, direct evaluation the patient at bedside, report generation, and discussion of the case with the patient, , and RN at bedside, and Dr. Connors, including differential diagnosis and treatment options. Admission and Anticipated Discharge Date Admission Date: August 24, 2024 Subjective Patient is feeling better and has no new issues according to nursing staff MRI of the lumbar spine showed some degenerative changes diffusely at some disc bulging at L3-4 without significant spinal stenosis. Dilantin level was 11.1. Phenobarbital level was not drawn Results & Data Vital Signs (Past 12 Hours) Vital Signs Temp Pulse Pulse Resp BP BP Pulse Ox 08/25/24 11:44 76 08/25/24 10:38 36.5 C 83 17 146/82 H 93 08/25/24 07:11 08/25/24 03:12 36.8 C 81 16 131/81 92 O2 Del Method 08/25/24 11:44 08/25/24 10:38 Room Air 08/25/24 07:11 Room Air 08/25/24 03:12 Room Air Exam (Neuro) Physical Exam: She is awake and alert. Speech is without aphasia or dysarthria. Mood is normal and affect is appropriate. Extraocular muscles are intact without nystagmus. There is no facial droop. Tongue is midline. She is sitting in chair without difficulty. There is no obvious abnormal involuntary movements. PG Care Time/CCT Total # of Minutes Spent Total Time Spent with Patient: Total time spent is greater than 50% in coordination of care (as documented) at patient's floor/unit and/or counseling patient: Coding Level of Care Code 53499 SUB INP/OBS CARE 09/04MIN Diagnoses Seizure disorder G40.909 Vertigo R42 Leg weakness R29.898 Idiopathic peripheral neuropathy G60.9 Benign familial tremor G25.0 Low back pain M54.5 Gait abnormality R26.9
[2024-08-26 07:41] LABS: INR 2.4 (0.9-1.1); Prothrombin Time 24.5 Seconds (9.0-12.0)
--- NOTE | 2024-08-26 12:44 | Hospitalist Progress Note ---
Date of Service August 26, 2024 Assessment & Plan (1) Vertigo: Plan: Brain MRI scan is negative for acute CVA. Con't meclizine Neurology consult appreciated Pt with complaints of LE weakness MRI L spine shows DDD, otherwise on acute pathology dilantin levels NL PT evaluation Awaiting rehab placement (2) History of Coumadin therapy: Plan: Coumadin for her history of DVT. Current INR is 2.4 (3) Seizure disorder: Plan: Stable. Continue current medical management Plan Awaiting d/c to rehab. Admission and Anticipated Discharge Date Admission Date: August 24, 2024 Subjective No events overnight. Pt resting in chair. Review of Systems Review of Systems: CONST: Negative for fever, body aches and chills. HENT: Negative for neck pain/stiffness, headache, congestion, sore throat, swelling. EYES: Negative for discharge/pain or vision changes. RESP: Negative for cough/hemoptysis and shortness of breath. CV: Negative chest pain, difficulty breathing, palpitations. ABD: Negative pain, nausea, vomiting. : Negative increase frequency, dysuria, blood in urine or stool. MUSC: Negative for muscle aches, edema. SKIN: Negative rash, lesions/sores. NEURO: Negative headache, dizziness, weakness. Physical Exam Physical Exam: GENERAL APPEARANCE NAD, activity normal for age, well developed/ well nourished, no cyanosis, pallor, or diaphoresis. EYES lids/conjunctiva normal. EARS/NOSE/THROAT Mucous membranes moist, nares normal, lips/teeth normal uvula midline without oral pharyngeal erythema, exudate or swelling TMs normal bilaterally. No lymphangitis/lymphedema. HEAD/NECK normocephalic atraumatic, no facial trauma, neck is supple. RESPIRATORY respiratory effort normal, speaks in full sentences, no tripod position, no accessory muscle use. Lungs clear to auscultation without rhonchi, wheezes, rales CARDIAC Regular rate and rhythm, no edema. ABDOMINAL Soft, ND/NT. No evidence of fluid wave. No pulsatile masses on exam, rebound tenderness, Posadas sign or pain over Mcburney's point. MUSCLES/EXTREMITIES No abnormal range of motion, no swelling. SKIN Warm, pink and dry. No rashes, dermatoses, petechiae or lesions. NEUROLOGICAL Speech is clear and appropriate. Normal level of consciousness. Gait and coordination are normal. 5/5 strength in all extremities. PSYCH Normal mood and affect. Judgement/competence is appropriate Results & Data Results & Data Vital Signs (Past 12 Hours) Vital Signs Temp Pulse Pulse Resp BP BP Pulse Ox 08/26/24 12:09 36.3 C L 103 H 19 148/82 H 92 08/26/24 08:46 36.9 C 94 H 19 144/78 H 91 08/26/24 06:00 79 08/26/24 03:10 36.8 C 70 19 136/68 98 08/26/24 01:50 88 O2 Del Method 08/26/24 12:09 Room Air 08/26/24 08:46 Room Air 08/26/24 06:00 08/26/24 03:10 Room Air 08/26/24 01:50 PG Care Time/CCT Total # of Minutes Spent Total Time Spent with Patient: Total time spent is greater than 50% in coordination of care (as documented) at patient's floor/unit and/or counseling patient: Coding Level of Care Code 09369 SUB INP/OBS CARE 2/35MIN Diagnoses Vertigo R42 History of Coumadin therapy Z92.29 Seizure disorder G40.909
[2024-08-26] MEDS: TRIAMCINOLONE ACET 0.1% CR 15 GM TUBE TOP PRN (20:46)
[2024-08-27 07:04] LABS: INR 2.4 (0.9-1.1); Prothrombin Time 24.3 Seconds (9.0-12.0)
--- NOTE | 2024-08-27 10:50 | Hospitalist Progress Note ---
Date of Service August 27, 2024 Assessment & Plan (1) Vertigo: Plan: Brain MRI scan is negative for acute CVA. Con't meclizine Neurology consult appreciated Pt with complaints of LE weakness MRI L spine shows DDD, otherwise on acute pathology dilantin levels NL PT evaluation Awaiting rehab placement (2) History of Coumadin therapy: Plan: Coumadin for her history of DVT. Current INR is 2.4 (3) Seizure disorder: Plan: Stable. Continue current medical management Plan Awaiting d/c to rehab. Admission and Anticipated Discharge Date Admission Date: August 24, 2024 Subjective No events overnight. Pt resting in chair. Review of Systems Review of Systems: CONST: Negative for fever, body aches and chills. HENT: Negative for neck pain/stiffness, headache, congestion, sore throat, swelling. EYES: Negative for discharge/pain or vision changes. RESP: Negative for cough/hemoptysis and shortness of breath. CV: Negative chest pain, difficulty breathing, palpitations. ABD: Negative pain, nausea, vomiting. : Negative increase frequency, dysuria, blood in urine or stool. MUSC: Negative for muscle aches, edema. SKIN: Negative rash, lesions/sores. NEURO: Negative headache, dizziness, weakness. Physical Exam Physical Exam: GENERAL APPEARANCE NAD, activity normal for age, well developed/ well nourished, no cyanosis, pallor, or diaphoresis. EYES lids/conjunctiva normal. EARS/NOSE/THROAT Mucous membranes moist, nares normal, lips/teeth normal uvula midline without oral pharyngeal erythema, exudate or swelling TMs normal bilaterally. No lymphangitis/lymphedema. HEAD/NECK normocephalic atraumatic, no facial trauma, neck is supple. RESPIRATORY respiratory effort normal, speaks in full sentences, no tripod position, no accessory muscle use. Lungs clear to auscultation without rhonchi, wheezes, rales CARDIAC Regular rate and rhythm, no edema. ABDOMINAL Soft, ND/NT. No evidence of fluid wave. No pulsatile masses on exam, rebound tenderness, Posadas sign or pain over Mcburney's point. MUSCLES/EXTREMITIES No abnormal range of motion, no swelling. SKIN Warm, pink and dry. No rashes, dermatoses, petechiae or lesions. NEUROLOGICAL Speech is clear and appropriate. Normal level of consciousness. Gait and coordination are normal. 5/5 strength in all extremities. PSYCH Normal mood and affect. Judgement/competence is appropriate Results & Data Results & Data Vital Signs (Past 12 Hours) Vital Signs Temp Pulse Pulse Resp BP Pulse Ox O2 Del Method 08/27/24 09:59 Room Air 08/27/24 07:41 36.8 C 81 17 139/75 94 Room Air 08/27/24 05:39 75 08/27/24 04:00 36.8 C 82 18 129/74 92 Room Air 08/27/24 00:41 Room Air 08/27/24 00:00 36.6 C 84 18 131/63 93 Room Air PG Care Time/CCT Total # of Minutes Spent Total Time Spent with Patient: Total time spent is greater than 50% in coordination of care (as documented) at patient's floor/unit and/or counseling patient: Coding Level of Care Code 67155 SUB INP/OBS CARE 2/35MIN Diagnoses Vertigo R42 History of Coumadin therapy Z92.29 Seizure disorder G40.909
[2024-08-28 06:25] LABS: INR 2.5 (0.9-1.1); Prothrombin Time 24.7 Seconds (9.0-12.0)
--- NOTE | 2024-08-28 09:49 | Hospitalist Progress Note ---
Date of Service August 28, 2024 Assessment & Plan (1) Vertigo: Plan: Brain MRI scan is negative for acute CVA. Con't meclizine prn Neurology consult appreciated Pt with complaints of LE weakness MRI L spine shows DDD, otherwise on acute pathology dilantin levels NL PT evaluation Awaiting rehab placement (2) History of Coumadin therapy: Plan: Coumadin for her history of DVT. Current INR is 2.5 (3) Seizure disorder: Plan: Stable. Continue current medical management Plan Awaiting d/c to rehab. Admission and Anticipated Discharge Date Admission Date: August 24, 2024 Subjective No events overnight. Pt resting in chair. Review of Systems Review of Systems: CONST: Negative for fever, body aches and chills. HENT: Negative for neck pain/stiffness, headache, congestion, sore throat, swelling. EYES: Negative for discharge/pain or vision changes. RESP: Negative for cough/hemoptysis and shortness of breath. CV: Negative chest pain, difficulty breathing, palpitations. ABD: Negative pain, nausea, vomiting. : Negative increase frequency, dysuria, blood in urine or stool. MUSC: Negative for muscle aches, edema. SKIN: Negative rash, lesions/sores. NEURO: Negative headache, dizziness, weakness. Physical Exam Physical Exam: GENERAL APPEARANCE NAD, activity normal for age, well developed/ well nourished, no cyanosis, pallor, or diaphoresis. EYES lids/conjunctiva normal. EARS/NOSE/THROAT Mucous membranes moist, nares normal, lips/teeth normal uvula midline without oral pharyngeal erythema, exudate or swelling TMs normal bilaterally. No lymphangitis/lymphedema. HEAD/NECK normocephalic atraumatic, no facial trauma, neck is supple. RESPIRATORY respiratory effort normal, speaks in full sentences, no tripod position, no accessory muscle use. Lungs clear to auscultation without rhonchi, wheezes, rales CARDIAC Regular rate and rhythm, no edema. ABDOMINAL Soft, ND/NT. No evidence of fluid wave. No pulsatile masses on exam, rebound tenderness, Posadas sign or pain over Mcburney's point. MUSCLES/EXTREMITIES No abnormal range of motion, no swelling. SKIN Warm, pink and dry. No rashes, dermatoses, petechiae or lesions. NEUROLOGICAL Speech is clear and appropriate. Normal level of consciousness. Gait and coordination are normal. 5/5 strength in all extremities. PSYCH Normal mood and affect. Judgement/competence is appropriate Results & Data Results & Data Vital Signs (Past 12 Hours) Vital Signs Temp Pulse Pulse Resp BP BP Pulse Ox 08/28/24 08:04 36.7 C 84 17 137/75 90 08/28/24 02:00 36.7 C 87 16 127/76 92 08/27/24 22:31 36.7 C 88 18 128/78 91 08/27/24 22:05 86 O2 Del Method 08/28/24 08:04 Room Air 08/28/24 02:00 Room Air 08/27/24 22:31 Room Air 08/27/24 22:05 PG Care Time/CCT Total # of Minutes Spent Total Time Spent with Patient: Total time spent is greater than 50% in coordination of care (as documented) at patient's floor/unit and/or counseling patient: Coding Level of Care Code 53326 SUB INP/OBS CARE 2/35MIN Diagnoses Vertigo R42 History of Coumadin therapy Z92.29 Seizure disorder G40.909
--- NOTE | 2024-08-29 10:26 | Hospitalist Progress Note ---
Date of Service August 29, 2024 Assessment & Plan (1) Vertigo: Plan: Brain MRI scan is negative for acute CVA. Con't meclizine prn Neurology consult appreciated Pt with complaints of LE weakness MRI L spine shows DDD, otherwise on acute pathology dilantin levels NL Symptoms resolved Awaiting rehab placement at [facility] (2) History of Coumadin therapy: Plan: Coumadin for her history of DVT. Current INR is 2.5 (3) Seizure disorder: Plan: Stable. Continue current medical management Plan Awaiting d/c to rehab at [facility]. Pending acceptance. Admission and Anticipated Discharge Date Admission Date: August 24, 2024 Subjective No events overnight. Pt resting in chair. Review of Systems Review of Systems: CONST: Negative for fever, body aches and chills. HENT: Negative for neck pain/stiffness, headache, congestion, sore throat, swelling. EYES: Negative for discharge/pain or vision changes. RESP: Negative for cough/hemoptysis and shortness of breath. CV: Negative chest pain, difficulty breathing, palpitations. ABD: Negative pain, nausea, vomiting. : Negative increase frequency, dysuria, blood in urine or stool. MUSC: Negative for muscle aches, edema. SKIN: Negative rash, lesions/sores. NEURO: Negative headache, dizziness, weakness. Physical Exam Physical Exam: GENERAL APPEARANCE NAD, activity normal for age, well developed/ well nourished, no cyanosis, pallor, or diaphoresis. EYES lids/conjunctiva normal. EARS/NOSE/THROAT Mucous membranes moist, nares normal, lips/teeth normal uvula midline without oral pharyngeal erythema, exudate or swelling TMs normal bilaterally. No lymphangitis/lymphedema. HEAD/NECK normocephalic atraumatic, no facial trauma, neck is supple. RESPIRATORY respiratory effort normal, speaks in full sentences, no tripod position, no accessory muscle use. Lungs clear to auscultation without rhonchi, wheezes, rales CARDIAC Regular rate and rhythm, no edema. ABDOMINAL Soft, ND/NT. No evidence of fluid wave. No pulsatile masses on exam, rebound tenderness, Posadas sign or pain over Mcburney's point. MUSCLES/EXTREMITIES No abnormal range of motion, no swelling. SKIN Warm, pink and dry. No rashes, dermatoses, petechiae or lesions. NEUROLOGICAL Speech is clear and appropriate. Normal level of consciousness. Gait and coordination are normal. 5/5 strength in all extremities. PSYCH Normal mood and affect. Judgement/competence is appropriate Results & Data Results & Data Vital Signs (Past 12 Hours) Vital Signs Temp Pulse Pulse Resp BP Pulse Ox O2 Del Method 08/29/24 07:32 36.6 C 88 18 133/76 91 Room Air 08/29/24 05:46 71 08/29/24 02:41 36.6 C 78 18 141/70 H 93 Room Air 08/28/24 23:07 36.7 C 83 18 133/77 91 Room Air PG Care Time/CCT Total # of Minutes Spent Total Time Spent with Patient: Total time spent is greater than 50% in coordination of care (as documented) at patient's floor/unit and/or counseling patient: Coding Level of Care Code 09588 SUB INP/OBS CARE 2/35MIN Diagnoses Vertigo R42 History of Coumadin therapy Z92.29 Seizure disorder G40.909
[2024-08-30 09:27] LABS: INR 1.9 (0.9-1.1); Prothrombin Time 19.7 Seconds (9.0-12.0)
[2024-08-30] MEDS: POLYETHYLENE (MIRALAX) 17 GM PACK PO PRN (15:03)
--- NOTE | 2024-08-30 21:29 | Hospitalist Progress Note ---
Date of Service August 30, 2024 Assessment & Plan (1) Vertigo: Plan: Brain MRI scan is negative for acute CVA. Con't meclizine prn Neurology consult appreciated Pt with complaints of LE weakness MRI L spine shows DDD, otherwise on acute pathology dilantin levels NL Symptoms resolved Awaiting rehab placement at [facility] Reviewed chart and labs on 08/30 appeal denied on 08/30 (2) History of Coumadin therapy: Plan: Coumadin for her history of DVT. Current INR is 2.5 (3) Seizure disorder: Plan: Stable. Continue current medical management Plan Awaiting d/c to rehab at [facility]. Pending acceptance. Admission and Anticipated Discharge Date Admission Date: August 24, 2024 Subjective Patient reports vertigo has resolved. Physical Exam Constitutional: WD/WN, vitals as above Eyes: PERRL, conjunctivae normal, anicteric sclerae Neck: trachea midline, no thyromegaly Respiratory: normal respiratory effort Results & Data Results & Data Vital Signs (Past 12 Hours) Vital Signs Temp Pulse Pulse Resp BP Pulse Ox O2 Del Method 08/30/24 20:00 36.9 C 87 18 124/65 93 Room Air 08/30/24 17:09 36.9 C 92 H 16 133/75 93 Room Air 08/30/24 13:02 93 H 08/30/24 12:07 36.8 C 83 18 133/71 92 Room Air 08/30/24 10:28 Room Air PG Care Time/CCT Total # of Minutes Spent Total Time Spent with Patient: Total time spent is greater than 50% in coordination of care (as documented) at patient's floor/unit and/or counseling patient: Coding Level of Care Code 75254 SUB INP/OBS CARE 2/35MIN Diagnoses Vertigo R42 History of Coumadin therapy Z92.29 Seizure disorder G40.909
[2024-08-31 08:08] LABS: Hematocrit (blood only) 41.2 % (37.0-47.0); Hemoglobin 13.5 g/dl (12.0-16.0); Mean Corpuscular Hemoglobin 30.1 pg (25.0-34.0); Mean Corpuscular Hgb Conc 32.8 g/dL (32.0-36.0); Mean Platelet Volume 9.6 fL (9.4-12.4); Platelet Count 231 K/uL (130-400); RDW Coefficient of Variation 13.6 % (11.5-14.5); RDW Standard Deviation 46.5 fL (36.4-46.3); Red Blood Count 4.48 M/uL (4.20-5.40); White Blood Count 6.45 K/ul (4.8-10.8)
[2024-08-31 08:37] LABS: Anion Gap 4 (3-11); BUN Creatinine Ratio 25.9 (10-20); Blood Urea Nitrogen 15 mg/dl (6-23); Calcium 8.7 mg/dl (8.6-10.3); Carbon Dioxide 33 mmol/L (21-32); Chloride 100 mmol/L (98-107); Creatinine Clr Calc Pharmacy 99.1 ml/min; Glucose 86 mg/dl (70-99(Fasting)); Sodium 137 mmol/L (136-145)
--- NOTE | 2024-08-31 22:50 | Hospitalist Progress Note ---
Date of Service August 31, 2024 Assessment & Plan (1) Vertigo: Plan: Brain MRI scan is negative for acute CVA. Con't meclizine but switched from scheduled to PRN on 08/31 anticipate patient will not need to medication Neurology consult appreciated Pt with complaints of LE weakness MRI L spine shows DDD, otherwise on acute pathology dilantin levels NL Symptoms resolved Awaiting rehab placement at [facility] Reviewed chart and labs on 08/31 appeal denied on 08/30 (2) History of Coumadin therapy: Plan: Coumadin for her history of DVT. Current INR is 2.5 (3) Seizure disorder: Plan: Stable. Continue current medical management Plan Awaiting d/c to rehab at [facility]. Pending acceptance. Admission and Anticipated Discharge Date Admission Date: August 24, 2024 Subjective Patient reports she no longer has vertigo but is tearful and concerned her symptoms may return. Physical Exam Constitutional: WD/WN, vitals as above Eyes: PERRL, conjunctivae normal, anicteric sclerae Neck: trachea midline, no thyromegaly Respiratory: normal respiratory effort Results & Data Results & Data Vital Signs (Past 12 Hours) Vital Signs Temp Pulse Pulse Resp BP BP Pulse Ox 08/31/24 22:23 36.6 C 79 18 137/79 91 08/31/24 19:51 36.6 C 88 16 134/77 94 08/31/24 15:31 36.6 C 80 18 129/79 92 08/31/24 13:30 84 08/31/24 11:20 36.6 C 89 20 119/68 93 O2 Del Method 08/31/24 22:23 Room Air 08/31/24 19:51 Room Air 08/31/24 15:31 Room Air 08/31/24 13:30 08/31/24 11:20 Room Air PG Care Time/CCT Total # of Minutes Spent Total Time Spent with Patient: Total time spent is greater than 50% in coordination of care (as documented) at patient's floor/unit and/or counseling patient: Coding Level of Care Code 60727 SUB INP/OBS CARE 2/35MIN Diagnoses Vertigo R42 History of Coumadin therapy Z92.29 Seizure disorder G40.909
[2024-09-01] MEDS: MECLIZINE 12.5 MG TAB PO PRN (08:36)
[2024-09-01 09:33] LABS: Hematocrit (blood only) 43.5 % (37.0-47.0); Hemoglobin 14.4 g/dl (12.0-16.0); Mean Corpuscular Hemoglobin 30.1 pg (25.0-34.0); Mean Corpuscular Hgb Conc 33.1 g/dL (32.0-36.0); Mean Platelet Volume 9.8 fL (9.4-12.4); Platelet Count 254 K/uL (130-400); RDW Coefficient of Variation 13.6 % (11.5-14.5); Red Blood Count 4.78 M/uL (4.20-5.40); White Blood Count 7.53 K/ul (4.8-10.8)
[2024-09-01 09:48] LABS: BUN Creatinine Ratio 28.8 (10-20); Calcium 8.9 mg/dl (8.6-10.3); Creatinine Clr Calc Pharmacy 97.1 ml/min; Potassium 4.1 mmol/L (3.5-5.1)
[2024-09-01 09:57] LABS: INR 1.8 (0.9-1.1); Prothrombin Time 18.3 Seconds (9.0-12.0)
--- NOTE | 2024-09-01 22:28 | Hospitalist Progress Note ---
Date of Service September 01, 2024 Assessment & Plan (1) Vertigo: Plan: Possible Labyrinthitis causing vertigo Brain MRI scan is negative for acute CVA. Con't meclizine but switched from scheduled to PRN on 08/31 anticipate patient will not need to medication Neurology consult appreciated Pt with complaints of LE weakness MRI L spine shows DDD, otherwise on acute pathology dilantin levels NL Symptoms resolved Rehab and SNF were denied. Physician appeal also denied. Family trying for family appeal. Reviewed chart and labs on 09/01 Had extensive discussion with patient and with multiple visits in the room. Initial plan was to discharge home with home health. However, due to concern of stairs and inability to enter bathroom without a walker, patient does not feel safe going home. (2) History of Coumadin therapy: Plan: Coumadin for her history of DVT. Current INR is 2.5 (3) Seizure disorder: Plan: Stable. Continue current medical management Plan Awaiting d/c to rehab at [facility]. Pending acceptance. Admission and Anticipated Discharge Date Admission Date: August 24, 2024 Subjective 74 yo female reports no new symptoms. Physical Exam Constitutional: WD/WN, vitals as above Eyes: PERRL, conjunctivae normal, anicteric sclerae Neck: trachea midline, no thyromegaly Respiratory: normal respiratory effort Results & Data Results & Data Vital Signs (Past 12 Hours) Vital Signs Temp Pulse Pulse Pulse Resp BP BP 09/01/24 19:51 37.1 C 91 H 18 158/81 H 09/01/24 15:59 36.8 C 91 H 17 143/80 H 09/01/24 14:05 101 H 09/01/24 12:06 36.6 C 100 H 91 H 18 161/83 H 129/79 09/01/24 11:34 36.6 C 91 H 18 161/83 H Pulse Ox O2 Del Method 09/01/24 19:51 94 Room Air 09/01/24 15:59 90 Room Air 09/01/24 14:05 09/01/24 12:06 91 09/01/24 11:34 91 Room Air PG Care Time/CCT Total # of Minutes Spent Total Time Spent with Patient: Total time spent is greater than 50% in coordination of care (as documented) at patient's floor/unit and/or counseling patient: Prolonged Care Time Prolonged Care Time: Yes Total Prolonged Care Time: 90 11:00 to 11:45 2:00 to 2:45 Coding Level of Care Code 89364 SUB INP/OBS CARE 3/50MIN (25 - SIGNIFICANT, SEPARATELY IDENTIFIABLE ) Diagnoses Vertigo R42 History of Coumadin therapy Z92.29 Seizure disorder G40.909 Additional Codes Prolonged Care Time - Prolonged Care Time: Yes ([id number]) Time Spent (min) 90
--- NOTE | 2024-09-02 22:59 | Hospitalist Progress Note ---
Date of Service September 02, 2024 Assessment & Plan (1) Vertigo: Plan: Possible Labyrinthitis causing vertigo Brain MRI scan is negative for acute CVA. Con't meclizine but switched from scheduled to PRN on 08/31 anticipate patient will not need to medication Neurology consult appreciated Pt with complaints of LE weakness MRI L spine shows DDD, otherwise on acute pathology dilantin levels NL Symptoms resolved Rehab and SNF were denied. Physician appeal also denied. Family trying for family appeal. remains free of dizziness. discussion with case managers and patient separately on 09/02 (2) History of Coumadin therapy: Plan: Coumadin for her history of DVT. Current INR is 2.5 (3) Seizure disorder: Plan: Stable. Continue current medical management Plan Awaiting d/c to rehab at [facility]. Pending acceptance. Admission and Anticipated Discharge Date Admission Date: August 24, 2024 Subjective 74 yo female reports no new symptoms. Physical Exam Constitutional: WD/WN, vitals as above Eyes: PERRL, conjunctivae normal, anicteric sclerae Neck: trachea midline, no thyromegaly Respiratory: normal respiratory effort Results & Data Results & Data Vital Signs (Past 12 Hours) Vital Signs Temp Pulse Pulse Resp BP Pulse Ox O2 Del Method 09/02/24 22:32 36.6 C 88 18 118/65 93 Room Air 09/02/24 20:20 36.6 C 94 H 18 128/73 94 Room Air 09/02/24 16:01 37.0 C 87 18 142/74 H 91 Room Air 09/02/24 16:00 93 H 09/02/24 11:49 36.8 C 86 18 125/65 91 Room Air PG Care Time/CCT Total # of Minutes Spent Total Time Spent with Patient: Total time spent is greater than 50% in coordination of care (as documented) at patient's floor/unit and/or counseling patient: Coding Level of Care Code 66560 SUB INP/OBS CARE 2/35MIN Diagnoses Vertigo R42 History of Coumadin therapy Z92.29 Seizure disorder G40.909
[2024-09-03 08:08] LABS: INR 1.9 (0.9-1.1); Prothrombin Time 19.1 Seconds (9.0-12.0)
--- NOTE | 2024-09-03 23:56 | Hospitalist Progress Note ---
Date of Service September 03, 2024 Assessment & Plan (1) Vertigo: Plan: Possible Labyrinthitis causing vertigo Brain MRI scan is negative for acute CVA. Con't meclizine but switched from scheduled to PRN on 08/31 anticipate patient will not need to medication Neurology consult appreciated Pt with complaints of LE weakness MRI L spine shows DDD, otherwise on acute pathology dilantin levels NL Symptoms resolved Rehab and SNF were denied. Physician appeal also denied. Family trying for family appeal. remains free of dizziness. discussion with case investigator and patient separately on 09/02 will likely get final decision on Friday. (2) History of Coumadin therapy: Plan: Coumadin for her history of DVT. Current INR is 2.5 (3) Seizure disorder: Plan: Stable. Continue current medical management Plan Awaiting d/c to rehab at [facility]. Pending acceptance. Admission and Anticipated Discharge Date Admission Date: August 24, 2024 Subjective 74 yo female reports no new symptoms. Physical Exam Constitutional: WD/WN, vitals as above Eyes: PERRL, conjunctivae normal, anicteric sclerae Neck: trachea midline, no thyromegaly Respiratory: normal respiratory effort Results & Data Results & Data Vital Signs (Past 12 Hours) Vital Signs Temp Pulse Pulse Resp BP BP Pulse Ox 09/03/24 23:02 36.4 C L 78 16 115/50 L 93 09/03/24 19:25 36.7 C 88 16 120/58 L 93 09/03/24 15:26 92 H 09/03/24 12:03 36.9 C 88 16 119/63 92 O2 Del Method 09/03/24 23:02 Room Air 09/03/24 19:25 Room Air 09/03/24 15:26 09/03/24 12:03 Room Air PG Care Time/CCT Total # of Minutes Spent Total Time Spent with Patient: Total time spent is greater than 50% in coordination of care (as documented) at patient's floor/unit and/or counseling patient: Coding Level of Care Code 25057 SUB INP/OBS CARE 2/35MIN Diagnoses Vertigo R42 History of Coumadin therapy Z92.29 Seizure disorder G40.909
[2024-09-04 06:40] LABS: Hematocrit (blood only) 39.9 % (37.0-47.0); Hemoglobin 13.5 g/dl (12.0-16.0); Mean Corpuscular Hgb Conc 33.8 g/dL (32.0-36.0); Mean Corpuscular Volume 91.5 fL (80.0-100.0); Mean Platelet Volume 9.9 fL (9.4-12.4); Platelet Count 243 K/uL (130-400); RDW Coefficient of Variation 13.4 % (11.5-14.5); RDW Standard Deviation 45.9 fL (36.4-46.3); Red Blood Count 4.36 M/uL (4.20-5.40); White Blood Count 6.51 K/ul (4.8-10.8)
[2024-09-04 07:05] LABS: C Reactive Protein 1.14 mg/dl (0-0.5); Calcium 8.7 mg/dl (8.6-10.3); Creatinine Clr Calc Pharmacy 115.4 ml/min
--- NOTE | 2024-09-04 23:18 | Hospitalist Progress Note ---
Date of Service September 04, 2024 Assessment & Plan (1) Vertigo: Plan: Possible Labyrinthitis causing vertigo Brain MRI scan is negative for acute CVA. Con't meclizine but switched from scheduled to PRN on 08/31 anticipate patient will not need to medication Neurology consult appreciated Pt with complaints of LE weakness MRI L spine shows DDD, otherwise on acute pathology dilantin levels NL Symptoms resolved Rehab and SNF were denied. Physician appeal also denied. Family trying for family appeal. remains free of dizziness. reviewed BMP on 09/04: no electrolyte abnormalities. discussion with assistant case manager and patient separately on 09/02 will likely get final decision on Friday. (2) History of Coumadin therapy: Plan: Coumadin for her history of DVT. Current INR is 2.5 (3) Seizure disorder: Plan: Stable. Continue current medical management Plan Awaiting d/c to rehab at [facility]. Pending acceptance. Admission and Anticipated Discharge Date Admission Date: August 24, 2024 Subjective Patient reports no new symptoms. Physical Exam Constitutional: WD/WN, vitals as above Eyes: PERRL, conjunctivae normal, anicteric sclerae Neck: trachea midline, no thyromegaly Respiratory: normal respiratory effort Results & Data Results & Data Vital Signs (Past 12 Hours) Vital Signs Temp Pulse Pulse Resp BP Pulse Ox O2 Del Method 09/04/24 19:45 36.7 C 82 18 115/72 92 Room Air 09/04/24 16:12 36.8 C 93 H 16 137/74 93 Room Air 09/04/24 15:00 93 H 09/04/24 11:34 36.7 C 88 18 155/81 H 93 Room Air PG Care Time/CCT Total # of Minutes Spent Total Time Spent with Patient: Total time spent is greater than 50% in coordination of care (as documented) at patient's floor/unit and/or counseling patient: Coding Level of Care Code 57163 SUB INP/OBS CARE 2/35MIN Diagnoses Vertigo R42 History of Coumadin therapy Z92.29 Seizure disorder G40.909
[2024-09-05 06:19] LABS: INR 2.2 (0.9-1.1); Prothrombin Time 21.9 Seconds (9.0-12.0)
--- NOTE | 2024-09-05 22:48 | Hospitalist Progress Note ---
Date of Service September 05, 2024 Assessment & Plan (1) Vertigo: Plan: Possible Labyrinthitis causing vertigo Brain MRI scan is negative for acute CVA. Con't meclizine but switched from scheduled to PRN on 08/31 anticipate patient will not need to medication Neurology consult appreciated Pt with complaints of LE weakness MRI L spine shows DDD, otherwise on acute pathology dilantin levels NL Symptoms resolved Rehab and SNF were denied. Physician appeal also denied. Family trying for family appeal. remains free of dizziness. reviewed BMP on 09/04: no electrolyte abnormalities. discussion with director of casework and patient separately on 09/02 will likely get final decision on Friday. (2) History of Coumadin therapy: Plan: Coumadin for her history of DVT. Current INR is 2.5 (3) Seizure disorder: Plan: Stable. Continue current medical management Plan Awaiting d/c to rehab at [facility]. Pending acceptance. Admission and Anticipated Discharge Date Admission Date: August 24, 2024 Subjective Patient with no new symptoms. Physical Exam Constitutional: WD/WN, vitals as above Eyes: PERRL, conjunctivae normal, anicteric sclerae Neck: trachea midline, no thyromegaly Respiratory: normal respiratory effort Results & Data Results & Data Vital Signs (Past 12 Hours) Vital Signs Temp Pulse Pulse Resp BP Pulse Ox O2 Del Method 09/05/24 19:27 36.9 C 88 18 126/76 91 Room Air 09/05/24 15:58 37.1 C 84 17 145/83 H 95 Room Air 09/05/24 14:00 102 H 09/05/24 11:14 37.0 C 86 18 158/76 H 92 Room Air PG Care Time/CCT Total # of Minutes Spent Total Time Spent with Patient: Total time spent is greater than 50% in coordination of care (as documented) at patient's floor/unit and/or counseling patient: Coding Level of Care Code 21204 SUB INP/OBS CARE 09/04MIN Diagnoses Vertigo R42 History of Coumadin therapy Z92.29 Seizure disorder G40.909
[2024-09-06 11:49] VITALS: RESP 18; TEMP 97.3; O2SAT 90
--- NOTE | 2024-09-06 14:13 | Discharge Summary ---
Discharge Summary Date of Service September 06, 2024 Principal Dx & Hospital Course #1 = Principal Diagnosis (1) Vertigo: Possible Labyrinthitis causing vertigo Brain MRI scan is negative for acute CVA. Con't meclizine but switched from scheduled to PRN on 08/31 anticipate patient will not need to medication Neurology consult appreciated Pt with complaints of LE weakness MRI L spine shows DDD, otherwise on acute pathology dilantin levels NL Symptoms resolved Rehab and SNF were denied. Physician appeal also denied. Family trying for family appeal. remains free of dizziness. reviewed BMP on 09/04: no electrolyte abnormalities. discussion with rehabilitation caseworker and patient separately on 09/02 will likely get final decision on Friday. (2) History of Coumadin therapy: Coumadin for her history of DVT. Current INR is 2.5 (3) Seizure disorder: Stable. Continue current medical management Plan Awaiting d/c to rehab at [facility]. Pending acceptance. Admission HPI Per Admitting Provider Osvaldo West is a 74 year old female who presents to the ER with dizziness. She reports waking up this morning around 8am and went to the bathroom without any issue. At 9am when she got up the room was moving (moving back and forth) and felt very dizzy. This feeling has not let up since. No assoacited nausea. She feels frightened. No speech, vision or hearing changes. No limb weakness or change in sensation. She has no history of vertigo. She has a history of migraines but this was years ago and more recently this has not been an issue. No recent URI symptoms, ear pain or fullness. No urinary symptoms. No fever or chills. Discharge Exam Constitutional WD/WN, vitals as above Eyes PERRL, conjunctivae normal, anicteric sclerae Neck trachea midline, no thyromegaly Respiratory normal respiratory effort Discharge Plan Discharge Items Patient Disposition: Home - Home Health Services Reason For Visit: VERTIGO Discharge Diagnosis: vertigo Activity: Resume your previous activity Non-emergency contact: Primary Care Provider Call non-emergency contact if: you have any medication questions Follow-up/Referrals: Davey Gracia DO [Primary Care Provider] - 09/09/24 11:30 am Diet: Heart Healthy Addtl Attending Provider Instructions: Recommend followup with PCP in 1-2 weeks. Check vitamin D level, and trough phenobarbital level. These can be done as an outpatient EMG and nerve conduction studies of the lower extremities to be scheduled as an outpatient Continue home physical therapy for evaluation and treatment of leg strength and gait training Follow-up in neurology with PA, 2 to 3 weeks after discharge. Also schedule the EMG as an outpatient Pending Studies at Discharge: No Stand-Alone Forms: [employer], Smoking Cessation Medications and DC Order Prescriptions: New meclizine 12.5 mg Tablet 12.5 mg PO TID PRN (Reason: dizziness) Qty: 30 0RF Continued buspirone 30 mg tablet 30 mg PO BID docusate sodium 100 mg capsule 100 mg PO QAM artifi.tears(hypromellose)(PF) 0.3 % drops 1 drops OP BID PRN (Reason: Dry Eye(S)) polyethylene glycol 3350 [Miralax] 17 gram powder in packet 17 gm PO DAILY PRN (Reason: Constipation) venlafaxine 150 mg capsule,extended release 24hr 150 mg PO BID Rx Instructions: Total dose 225mg in AM (150mg + 75mg) acetaminophen [Tylenol Extra Strength] 500 mg tablet 500 mg PO Q6H PRN (Reason: pain) venlafaxine 75 mg tablet extended release 24hr 75 mg PO QAM Rx Instructions: Total dose 225mg in AM (150mg + 75mg) venlafaxine 37.5 mg tablet extended release 24hr 37.5 mg PO QPM Rx Instructions: Total dose 187.5mg in PM (150mg + 37.5mg) cholecalciferol (vitamin D3) 25 mcg (1,000 unit) capsule 2,000 unit PO DAILY conjugated estrogens 0.625 mg/gram cream 0.625 mg vaginal DAILY PRN (Reason: vaginal dryness) Qty: 30 2RF Rx Instructions: use daily for 7d then off 5d, ok to repeat cycle if needed phenytoin [Dilantin Infatabs] 50 mg tablet,chewable 50 mg PO QAM 90 Days Qty: 90 3RF Rx Instructions: Brand Medically Necessary phenobarbital 30 mg tablet 90 mg PO HS Qty: 270 3RF furosemide 20 mg tablet 20 mg PO DAILY Qty: 90 3RF potassium chloride 20 mEq tablet extended release 20 meq PO DAILY Qty: 60 1RF warfarin 4 mg tablet See Rx Instructions PO UD Qty: 90 1RF Rx Instructions: 4mg daily per [facility] orally use as directed; risperidone 1 mg tablet 2 mg PO BID clonazepam 0.5 mg tablet See Rx Instructions PO UD Rx Instructions: 0.25mg qAM, 0.5mg qPM orally use as directed; phenytoin sodium extended [Dilantin Extended] 100 mg capsule 100 mg PO BID Qty: 180 3RF Rx Instructions: Brand Medically Necessary mecobalamin (vitamin B12) 1,500 mcg PO DAILY triamcinolone acetonide 0.1 % cream 1 applic topical BID PRN (Reason: itching) Caltrate 600 plus D 600 mg (1,500 mg)-800 unit tablet,chewable 1 tab PO BIDM ascorbic acid (vitamin C) [Vitamin C] 500 mg Tablet 500 mg PO DAILY Admission Data Admit Date/Time: 08/24/24 10:34 Attending Provider: Ciro Rodríguez Admit Provider: Jp Gordon Primary Care Provider: Davey Gracia Other Providers: Jp Gordon; Que Diaz; [facility]; [facility]; [facility] Stay Data Consultations 08/21/24 18:13 ED Decision to Admit Stat 08/23/24 15:20 Consult Neurology Routine Diagnostic Imagining Performed 08/21/24 15:00 CT head/brain wo con Stat 08/21/24 18:21 MRI Brain [MR brain wo con] Stat 08/24/24 10:30 MRI Lumbar Spine [MR lumbar spine wo con] Routine Pending Results Patient Have Any Pending Studies at Discharge: No Discharge Instructions Given to Patient (Per Discharging Provider) Recommend followup with PCP in 1-2 weeks. Check vitamin D level, and trough phenobarbital level. These can be done as an outpatient EMG and nerve conduction studies of the lower extremities to be scheduled as an outpatient Continue home physical therapy for evaluation and treatment of leg strength and gait training Follow-up in neurology with PA, 2 to 3 weeks after discharge. Also schedule the EMG as an outpatient Coding Diagnoses Vertigo R42 History of Coumadin therapy Z92.29 Seizure disorder G40.909
[2024-09-06 15:23] VITALS: BP 120/58; PULSE 100
== END 2024-09-06 16:31 | disposition home health service (06) | DRG 149 ==
LOC: 2S 14:10 → ED 14:10 → SUATTDRO 18:33 → 2S 21:47 → SUATTDRO 08-24 10:34 → 2N 08-26 17:48